=== PATIENT | male | born 1940 | race Caucasian/White ===

== ENCOUNTER → 2018-11-21 13:01 | Outpatient (CLI) | payer MEDICARE, SELFPAY ==
--- NOTE | 2018-11-21 | DI.RAD.S_ITS ---
PROCEDURE: XR FOOT LT MIN 3V INDICATIONS: LEFT FOOT PAIN TECHNIQUE: 3 views of the foot were acquired. COMPARISON: None. FINDINGS: Bones: No fractures or dislocations. No suspicious bony lesions. Plantar calcaneal spurring. Diffuse midfoot degenerative spurring. There is diffuse osteopenia throughout the forefoot which decreases study sensitivity. Scattered interphalangeal osteoarthritis Soft tissues: No tibiotalar joint effusion. Achilles tendon appears normal. Vascular calcifications are noted IMPRESSION: Mild left foot joint degeneration. Plantar calcaneal spur. Dictated by: Jesús Chase M.D. on 11/21/2018 at 13:11 Approved by: Jesús Chase M.D. on 11/21/2018 at 13:16
== END ==
PROVIDERS: PCP Family Medicine; Visit Provider Family Medicine
DX: M79.672 Pain in left foot (principal); M19.072 Primary osteoarthritis, left ankle and foot; M77.32 Calcaneal spur, left foot
CPT/HCPCS: 73630

== ENCOUNTER 2018-12-04 13:46 | Emergency (ER) | payer MEDICARE, SELFPAY ==
[2018-12-04 13:50] VITALS: BP 169/87; PULSE 114; RESP 26; TEMP 36.6; O2SAT 95; BMI 33.8
--- NOTE | 2018-12-04 13:52 | ED_ITS ---
HPI - General Adult General Chief complaint: Dizziness Stated complaint: light headed,feels like he has sea legs Time Seen by Provider: 12/04/18 13:51 Source: patient Mode of arrival: ambulatory Limitations: no limitations History of Present Illness HPI narrative: Patient is a 78-year-old male here for evaluation of lightheadedness. He states that this morning he brought his into the wound care clinic. He was out in his car closing the door when he stated he suddenly became very lightheaded. He was a non vertigo sensation. He stated that he felt like he needs to sit down. He reported no other symptoms at the time. He states that he has had lightheadedness like this occasionally in the past. Has not tried anything for his symptoms prior to arrival Related Data Home Medications Medication Instructions Recorded Confirmed Atorvastatin Calcium (Lipitor) #0 06/15/10 NADOLOL (Corgard) #0 06/15/10 aspirin [Aspirin Low Dose] 1 tab PO DAILY #0 06/15/10 12/04/18 bupropion HCl 150 mg PO DAILY 12/04/18 12/04/18 cephalexin 500 mg PO QID 12/04/18 12/04/18 furosemide 40 mg PO BID 12/04/18 12/04/18 losartan 100 mg PO DAILY 12/04/18 12/04/18 oxycodone 5 mg PO Q4-6H PRN 12/04/18 12/04/18 triamterene-hydrochlorothiazid 1 cap PO DAILY 12/04/18 12/04/18 Allergies Allergy/AdvReac Type Severity Reaction Status Date / Time No Known Drug Allergies Allergy Verified 12/04/18 13:55 Review of Systems Constitutional Reports fatigue, Denies fever(s), Denies headache(s) and Reports weakness Eyes Denies blurry vision, Denies change in vision and Denies diplopia ENT Ears, Nose, Mouth, and Throat: Denies vertigo, Reports dizziness, Denies headache(s), Denies nasal congestion, Denies nasal discharge, Reports disequilibrium and Reports sore throat Cardiovascular Denies chest pain, Denies syncope, Denies rapid heart rate, Denies pedal edema, Denies edema, Denies irregular heart rhythm, Denies palpitations and Denies dyspnea Respiratory Denies cough and Denies dyspnea Gastrointestinal Gastrointestinal: Denies abdominal pain, Denies nausea and Denies vomiting Genitourinary Denies dysuria Musculoskeletal Denies myalgias and Denies arthralgias Integumentary/Breasts Denies rash Neurologic Denies behavioral changes, Denies confusion, Denies vertigo, Reports dizziness, Denies syncope, Denies headache(s), Denies focal weakness, Denies paresthesias, Denies tremor(s), Reports disequilibrium and Reports weakness Psychiatric Denies behavioral changes and Denies confusion Endocrine Reports fatigue and Denies palpitations Hematologic/Lymphatic Comments: Not on anticoagulation Allergic/Immunologic Denies urticaria PFSH Medical History Hypertension (Acute) Surgical History No pertinent past surgical history (Acute) Social History Smoking Status: Former smoker Social History Smoking Status: Former smoker Exam Initial Vital Signs Initial Vital Signs: Vital Signs Temperature 97.8 F 12/04/18 13:50 Pulse Rate 114 H 12/04/18 13:50 Respiratory Rate 26 H 12/04/18 13:50 Blood Pressure 169/87 H 12/04/18 13:50 Pulse Oximetry 95 12/04/18 13:50 Const General: cooperative, well developed, well groomed and No acute distress Orientation: alert, awake and oriented x3 HENMT Head: normal to inspection and normocephalic Eyes Pupils: PERRL EOM: EOM intact bilaterally Resp Effort & Inspection: normal respiratory effort Auscultation: clear to auscultation bilaterally Cardio Rate: tachycardic Rhythm: regular rhythm Pulses: radial pulses present GI Inspection: non-distended Palpation: soft, No firm and No tender Skin Lesions: no lesions Rashes: no rashes Neuro General: alert, awake and oriented x3 Cognition: normal cognition Speech: speech normal Motor: muscle tone normal throughout Sensory Exam: no sensory deficits noted Extrem General: normal to inspection and capillary refill normal Psych Appearance: grossly normal and well kempt Course Orders Ordered: ED Orders 12/04/18 13:53 EKG-12 Lead Stat 12/04/18 14:13 CT head/brain wo con Stat 12/04/18 14:15 Basic Metabolic Panel Stat Complete Blood Count AUTO DIFF Stat Partial Thromboplastin Time Stat Prothrombin Time INR Stat Troponin I Stat Discontinued Medications Sodium Chloride (Normal Saline 0.9%) 1,000 mls @ 1,000 mls/hr IV BOLUS ONE Stop: 12/04/18 15:10 Last Infusion: 12/04/18 15:21 Dose: 0 mls/hr Admin: 12/04/18 14:24 Dose: 1,000 mls/hr Vital Signs - 8 hr 12/04/18 13:50 12/04/18 14:30 12/04/18 15:01 Temperature 97.8 F Pulse Rate 114 H 112 H 96 H Respiratory Rate 26 H 18 18 Blood Pressure 169/87 H Blood Pressure [Left Arm] 173/70 H 134/58 L Pulse Oximetry 95 96 96 12/04/18 16:00 Temperature Pulse Rate 96 H Respiratory Rate 16 Blood Pressure Blood Pressure [Left Arm] 160/67 H Pulse Oximetry 97 Medical Decision Making Lab Data Lab results reviewed: Yes I reviewed the patient's lab results. Result diagrams: 12/04/18 14:15 12/04/18 14:15 Lab Results 12/04/18 12/04/18 12/04/18 Range/Units 14:15 14:15 14:15 WBC 6.7 (4.5-11.0) X10^3/uL RBC 4.86 (4.5-5.9) X10^6/uL Hgb 15.4 (13.5-17.5) g/dL Hct 44.6 (41-53) % MCV 91.9 (80-100) fL MCH 31.7 (26-34) PG MCHC 34.5 (30-36) % RDW 14.3 (11.6-14.8) % Plt Count 216 (150-400) X10^3/uL Neut % (Auto) 71.7 (50-75) % Lymph % (Auto) 16.7 L (25-40) % [place] % (Auto) 9.4 (3-14) % Eos % (Auto) 1.0 L (2-4) % Baso % (Auto) 1.2 (0-2) % Neut # (Auto) 4800 (7625-0517) /uL Lymph # (Auto) 1100 (5107-3270) /uL [place] # (Auto) 600 (0-900) /uL Eos # (Auto) 100 (0-450) /uL Baso # (Auto) 100 (0-100) /uL PT 12.2 (10.1-12.7) SECONDS INR 1.1 (0.9-1.3) APTT 32 (26.4-36.2) SECONDS Sodium 136 L (137-145) mmol/L Potassium 3.1 L (3.4-5.1) mmol/L Chloride 96 L (98-107) mmol/L Carbon Dioxide 27 (22-32) mmol/L BUN 17 (9-20) mg/dL Creatinine 1.10 (0.66-1.25) mg/dL Estimated GFR > 60.0 (>60) mL/min BUN/Creatinine Ratio 15.5 (6-22) Glucose 210 H (80-110) mg/dL Calcium 9.7 (8.4-10.2) mg/dL Troponin I < 0.012 (0.01-0.034) ng/mL Imaging Data CT scan - head: Radiologist's impression: [address] [address] [address] Scan Report Signed Patient: Steven ChowdhuryMR#: [id number] : 1Acct:[id number] Age/Sex: 78 / MDate of Service: 12/04/18 Loc: ED Accession Number: [id number] Procedure: CT head/brain wo con Ordering Provider: Flavio Hartmann D.O. PROCEDURE: CT HEAD/BRAIN WO CON INDICATIONS: Lightheadedness TECHNIQUE: Noncontrast 4.5 mm thick angled axial sections acquired from the foramen magnum to the vertex, with coronal and sagittal reformats. For radiation dose reduction, the following was used: automated exposure control, adjustment of mA and/or kV according to patient size. COMPARISON: None. FINDINGS: Image quality: Diagnostic. CSF spaces: Basal cisterns are patent. No extra-axial fluid collections. Ventricles are moderately prominent. Brain: No midline shift. No intracranial masses or hemorrhage. Muse-white matter interface is normal. Area of low attenuation involving the right cerebellum suggestive of an old infarction. There also are heterogeneous areas of decreased density involving the brainstem. Scattered areas of low attenuation are identified within the deep white matter and periventricular white matter of the supratentorial brain. There is diffuse parenchymal volume loss. Calcification along the midline falx is identified, which could potentially represent a calcified meningioma. This structure is not exerting mass effect on adjacent parenchymal structures and is noted to measure approximately 1.5 x 0.6 cm (image 23, series 2). Skull and face: Calvarium and visualized facial bones are intact, without suspicious lesions. Sinuses: Visualized sinuses and mastoids are clear. IMPRESSION: 1. No acute intracranial hemorrhage. 2. Moderate parenchymal volume loss and chronic small vessel ischemic changes. 3. 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 If there is clinical concern for acute ischemia, MRI would be helpful for better evaluation. Dictated by: Dayton Mari M.D. on 12/04/2018 at 13:32 ECG Data Attestation: I personally reviewed and interpreted this ECG as follows: Prior ECG tracings: not available for review Interpretation: Sinus tachycardia ventricular rate of [address] T wave changes MDM Narrative Medical decision making narrative: Patient states he feels much better after fluids. He ambulated around the emergency department his cane without problems. He sat up without problems. Electrolytes head CT all unremarkable. Low suspicion for CVA. Patient did become rather emotional talking about a recent health issue that his had. His also states that he quit drinking a couple days ago. He has no signs of withdrawal currently. Will hold on further workup for now. Patient was instructed to take his medications as directed. It also appears that he has been inconsistent with taking his medication. Will h ave him follow up with his primary care doctor tomorrow. He was given return precautions. Both he and his expressed understanding and agreement with plan. Discharge Plan Departure Patient Disposition: Home Clinical Impression: Lightheaded Instructions: DI for Dizziness-Nonvertigo Activity Restrictions/Additional Instructions: Make sure that you continue all of your medications as directed. I do recommend that you increase her fluid intake. Tomorrow contact your primary care doctor for follow-up. Return to the emergency department for any new or worsening symptoms Prescriptions: No Action Atorvastatin Calcium (Lipitor) Qty: 0 RF: 0 aspirin [Aspirin Low Dose] 81 mg Tablet,Delayed Release (Dr/Ec) 1 tab PO DAILY Qty: 0 RF: 0 NADOLOL (Corgard) Qty: 0 RF: 0 furosemide 40 mg tablet 40 mg PO BID RF: 0 triamterene-hydrochlorothiazid 37.5-25 mg capsule 1 cap PO DAILY RF: 0 cephalexin 500 mg capsule 500 mg PO QID RF: 0 losartan 100 mg tablet 100 mg PO DAILY RF: 0 oxycodone 5 mg tablet 5 mg PO Q4-6H PRN (Reason: pain) RF: 0 bupropion HCl 150 mg tablet extended release 24 hr 150 mg PO DAILY RF: 0 Referrals: Brien Sharpe MD [Primary Care Provider] -
--- NOTE | 2018-12-04 14:13 | DI.CT.S_ITS ---
PROCEDURE: CT HEAD/BRAIN WO CON INDICATIONS: Lightheadedness TECHNIQUE: Noncontrast 4.5 mm thick angled axial sections acquired from the foramen magnum to the vertex, with coronal and sagittal reformats. For radiation dose reduction, the following was used: automated exposure control, adjustment of mA and/or kV according to patient size. COMPARISON: None. FINDINGS: Image quality: Diagnostic. CSF spaces: Basal cisterns are patent. No extra-axial fluid collections. Ventricles are moderately prominent. Brain: No midline shift. No intracranial masses or hemorrhage. Muse-white matter interface is normal. Area of low attenuation involving the right cerebellum suggestive of an old infarction. There also are heterogeneous areas of decreased density involving the brainstem. Scattered areas of low attenuation are identified within the deep white matter and periventricular white matter of the supratentorial brain. There is diffuse parenchymal volume loss. Calcification along the midline falx is identified, which could potentially represent a calcified meningioma. This structure is not exerting mass effect on adjacent parenchymal structures and is noted to measure approximately 1.5 x 0.6 cm (image 23, series 2). Skull and face: Calvarium and visualized facial bones are intact, without suspicious lesions. Sinuses: Visualized sinuses and mastoids are clear. IMPRESSION: 1. No acute intracranial hemorrhage. 2. Moderate parenchymal volume loss and chronic small vessel ischemic changes. 3. 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 If there is clinical concern for acute ischemia, MRI would be helpful for better evaluation. Dictated by: Dayton Mari M.D. on 12/04/2018 at 13:32 Approved by: Dayton Mari M.D. on 12/04/2018 at 13:35
[2018-12-04] MEDS: SODIUM CHLORIDE 0.9% 1,000 ML 1000 ML IV (14:24)
[2018-12-04 14:26] LABS: Add Manual Diff / Slide Review NO; Basophils Absolute Auto 100 /uL (0-100); Basophils Percent Auto 1.2 % (0-2); Eosinophils Absolute Auto 100 /uL (0-450); Hematocrit 44.6 % (41-53); Hemoglobin 15.4 g/dL (13.5-17.5); Lymphocytes Absolute Auto 1100 /uL (1100-4500); Lymphocytes Percent Auto 16.7 % (25-40); Mean Corpuscular HGB Conc 34.5 % (30-36); Mean Corpuscular Hemoglobin 31.7 PG (26-34); Mean Corpuscular Volume 91.9 fL (80-100); Monocytes Absolute Auto 600 /uL (0-900); Monocytes Percent Auto 9.4 % (3-14); Neutrophils Absolute Auto 4800 /uL (1500-7000); Neutrophils Percent Auto 71.7 % (50-75); Platelet Count 216 X10^3/uL (150-400); Red Blood Cell Count 4.86 X10^6/uL (4.5-5.9); Red Cell Distribution Width 14.3 % (11.6-14.8); White Blood Cell Count 6.7 X10^3/uL (4.5-11.0)
[2018-12-04 14:30] VITALS: BP 173/70; PULSE 112; RESP 18; O2SAT 96
[2018-12-04 14:31] LABS: INR 1.1 (0.9-1.3); Prothrombin Time 12.2 SECONDS (10.1-12.7)
[2018-12-04 14:34] LABS: PTT Partial Thromboplastin Tim 32 SECONDS (26.4-36.2)
[2018-12-04 14:36] LABS: BUN Creatinine Ratio 15.5 (6-22); Blood Urea Nitrogen 17 mg/dL (9-20); Calcium 9.7 mg/dL (8.4-10.2); Carbon Dioxide 27 mmol/L (22-32); Chloride 96 mmol/L (98-107); Estimated Glomerular Filt Rate > 60.0 mL/min (>60); Glucose 210 mg/dL (80-110); HEMOLYSIS < 15 (0-50); Potassium 3.1 mmol/L (3.4-5.1); Sodium 136 mmol/L (137-145)
[2018-12-04 15:01] VITALS: BP 134/58; PULSE 96; RESP 18; O2SAT 96
[2018-12-04 15:05] LABS: Troponin I < 0.012 ng/mL (0.01-0.034)
--- NOTE | 2018-12-04 15:56 | PC.NURSE ---
Pt states he feels much better. Like night and day.
[2018-12-04 16:00] VITALS: BP 160/67; PULSE 96; RESP 16; O2SAT 97
--- NOTE | 2018-12-04 16:04 | PC.NURSE ---
arrives to ED and nurse from wound care explains that she (the ) told her nurse that the patient he quit drinking 4 days ago.
[2018-12-04 16:51] VITALS: BP 160/67; PULSE 96; RESP 16; O2SAT 99
== END 2018-12-04 16:52 | disposition home or self-care (01) ==
PROVIDERS: Emergency Provider Emergency Medicine; PCP Family Medicine
DX: R42 Dizziness and giddiness (principal)
CPT/HCPCS: 36591; 70450; 80048; 84484; 85025; 85610; 85730; 93005; 96360; 99283; 99285

== ENCOUNTER → 2018-12-18 13:42 | Outpatient (CLI) | payer MEDICARE, SELFPAY ==
--- NOTE | 2018-12-18 | DI.MRI.S_ITS ---
PROCEDURE: MR HEAD/BRAIN WO CON INDICATIONS: Dizziness and weakness TECHNIQUE: Non-contrast axial T1 spin echo, axial T2 fast spin echo, sagittal and axial FLAIR, coronal T2 fast spin echo, axial gradient echo, axial diffusion and ADC through the brain. COMPARISON: [facility], CT, CT HEAD/BRAIN WO CON, 12/04/2018, 14:11. FINDINGS: Image quality: Excellent. CSF spaces: Ventricles appear symmetric in size and shape. Basal cisterns are patent. No extra-axial fluid collections. Brain: No intracranial bleeds or mass effects. There is cerebral volume loss for age. There are periventricular and deep white matter chronic small vessel ischemic changes. The region of the medial subareolar hemispheres, there is hyperintense appearance on diffusion weighted imaging in the medial right cerebellum however this is probably T2 shine through artifact given the appearance on the ADC map. There is also medial left cerebellar signal change also probably chronic. These correspond to the hypoattenuating appearance on the comparison CT from 12/04/18. No convincing acute ischemia identified. 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 Brainstem appears normal. Normal intravascular flow voids are present. Skull and face: Calvarial bone marrow is normal in signal. Orbits are normal. Sinuses: Sinuses and mastoids are clear. IMPRESSION: No evidence of acute ischemia. Medial cerebellar lobe signal abnormalities presumably subacute or chronic infarct/encephalomalacia as discussed above. Diffuse small white matter signal changes, probably represent chronic microvascular ischemic disease, versus statistically less likely demyelination or other infectious, inflammatory, neurodegenerative etiology, technically nonspecific. Dictated by: Jesús Chase M.D. on 12/18/2018 at 15:42 Approved by: Jesús Chase M.D. on 12/18/2018 at 15:49
== END ==
PROVIDERS: PCP Family Medicine; Visit Provider Family Medicine
DX: R42 Dizziness and giddiness (principal)
CPT/HCPCS: 70551

== ENCOUNTER 2019-01-07 16:19 | Emergency (ER) | payer MEDICARE, SELFPAY ==
[2019-01-07 16:31] VITALS: BP 150/80; PULSE 100; RESP 18; TEMP 36.7; O2SAT 99; BMI 315.6
--- NOTE | 2019-01-07 20:33 | ED.SKABFB ---
HPI - Skin/Abscess/Foreign Bdy <KARYNA Carlson - Last Filed: 01/07/19 22:39> General Chief complaint: Skin/Abscess/Foreign Body Stated complaint: infection on left aguilar bone Time Seen by Provider: 01/07/19 20:33 Source: patient Mode of arrival: ambulatory Limitations: no limitations History of Present Illness HPI narrative: 78-year-old male that is a former smoker with history of hypertension here for complaint of redness and discomfort to his left lower extremity for the last week. He denies any trauma to the area. He is concerned for infection. He denies any significant swelling to the lower extremity. He is ambulatory in the emergency room with a cane. No known fevers. Positive p.o. intake. No nausea or vomiting. No chest pain no shortness of breath. No other concerns or complaints at this timeframe. Related Data Home Medications Medication Instructions Recorded Confirmed Atorvastatin Calcium (Lipitor) #0 06/15/10 NADOLOL (Corgard) #0 06/15/10 aspirin [Aspirin Low Dose] 1 tab PO DAILY #0 06/15/10 12/04/18 bupropion HCl 150 mg PO DAILY 12/04/18 12/04/18 cephalexin 500 mg PO QID 12/04/18 12/04/18 furosemide 40 mg PO BID 12/04/18 12/04/18 losartan 100 mg PO DAILY 12/04/18 12/04/18 oxycodone 5 mg PO Q4-6H PRN 12/04/18 12/04/18 triamterene-hydrochlorothiazid 1 cap PO DAILY 12/04/18 12/04/18 Previous Rx's Medication Instructions Recorded clindamycin HCl 300 mg PO QID #28 cap 01/07/19 Allergies Allergy/AdvReac Type Severity Reaction Status Date / Time No Known Drug Allergies Allergy Verified 01/07/19 16:37 Review of Systems <KARYNA Carlson - Last Filed: 01/07/19 22:39> Constitutional Denies chills, Denies fever(s), Denies lethargy and Denies weakness Eyes Denies change in vision, Denies eye discharge, Denies irritation and Denies loss of vision ENT Ears, Nose, Mouth, and Throat: Denies change in voice, Denies neck pain and Denies sore throat Cardiovascular Denies chest pain, Denies irregular heart rhythm, Denies lightheadedness, Denies palpitations, Denies dyspnea, Denies dyspnea on exertion and Denies orthopnea Respiratory Denies cough, Denies dyspnea, Denies dyspnea on exertion and Denies wheezing Gastrointestinal Gastrointestinal: Denies abdominal pain, Denies change in bowel habits, Denies diarrhea, Denies nausea and Denies vomiting Genitourinary Denies hematuria, Denies flank pain, Denies urinary incontinence and Denies urinary urgency Musculoskeletal Denies neck pain Comments: Redness and discomfort to left lower extremity Integumentary/Breasts Denies pruritus, Denies erythema, Denies rash and Denies wounds Neurologic Denies loss of vision and Denies weakness Endocrine Denies palpitations Allergic/Immunologic Denies wheezing PFSH <KARYNA Carlson - Last Filed: 01/07/19 22:39> Medical History Hypertension (Acute) Surgical History No pertinent past surgical history (Acute) Social History Smoking Status: Former smoker Social History Smoking Status: Former smoker Exam <KARYNA Carlson - Last Filed: 01/07/19 22:39> Initial Vital Signs Initial Vital Signs: Vital Signs Temperature 98.1 F 01/07/19 16:31 Pulse Rate 100 H 01/07/19 16:31 Respiratory Rate 18 01/07/19 16:31 Blood Pressure 150/80 H 01/07/19 16:31 Pulse Oximetry 99 01/07/19 16:31 Const General: cooperative and well developed Nutritional Appearance: well nourished Orientation: alert, awake, oriented x3 and not confused [facility] Mouth: oral mucosae normal and moist mucous membranes Eyes General: appearance normal, both eyes and all related structures Conjunctivae: conjunctivae normal Sclera: sclerae normal Pupils: PERRL EOM: EOM intact bilaterally Cardio Rate: regular rate Rhythm: regular rhythm Heart Sounds: no click, no gallops, no murmurs and no rubs Pulses: normal peripheral pulses Neuro General: alert, oriented x3, gait normal and no focal motor deficits Speech: speech normal Extrem Other: Erythema and warmth to the left lower extremity to both the calf and also aguilar area. Distal sensation is intact. Distal range of motions intact. Distal pulses are intact. <Jean-Claude Christie DO - Last Filed: 01/08/19 06:56> Initial Vital Signs Initial Vital Signs: Vital Signs Temperature 98.1 F 01/07/19 16:31 Pulse Rate 100 H 01/07/19 16:31 Respiratory Rate 18 01/07/19 16:31 Blood Pressure 150/80 H 01/07/19 16:31 Pulse Oximetry 99 01/07/19 16:31 Course <KARYNA Carlson - Last Filed: 01/07/19 22:39> Vital Signs - 8 hr 01/07/19 16:31 01/07/19 21:07 Temperature 98.1 F Pulse Rate 100 H 82 Respiratory Rate 18 15 Blood Pressure 150/80 H 158/89 H Pulse Oximetry 99 99 <Jean-Claude Christie DO - Last Filed: 01/08/19 06:56> Vital Signs - 8 hr 01/07/19 16:31 01/07/19 21:07 Temperature 98.1 F Pulse Rate 100 H 82 Respiratory Rate 18 15 Blood Pressure 150/80 H 158/89 H Pulse Oximetry 99 99 MDM - Skin/Abscess/Foreign Bdy <KARYNA Carlson - Last Filed: 01/07/19 22:39> MDM Narrative Medical decision making narrative: Sinus symptoms presents as cellulitis to left lower extremity. He is placed on clindamycin. Use [id number] Tylenol or Motrin as needed for any discomfort. Follow up with primary care for the next few days for re-evaluation. Proximal margins of the erythema were marked with a skin marker. For any worsening symptoms return to the emergency room. Discharge Plan Departure Patient Disposition: Home Clinical Impression: Cellulitis of left lower leg Discharge Date/Time: 01/07/19 21:07 Interventions: ED Discharge Assessment Last Done: 01/07/19 21:07 Instructions: DI for Cellulitis -- Adult Activity Restrictions/Additional Instructions: Signs and symptoms presents as cellulitis to the left lower extremity. Your placed on an antibiotic called clindamycin use as directed. Follow up with her primary care provider in the next couple of days for re-evaluation to ensure symptoms are improving. For any worsening symptoms return emergency room. Use [id number] Tylenol as needed for any discomfort. Prescriptions: New clindamycin HCl 300 mg capsule 300 mg PO QID Qty: 28 RF: 0 No Action Atorvastatin Calcium (Lipitor) Qty: 0 RF: 0 aspirin [Aspirin Low Dose] 81 mg Tablet,Delayed Release (Dr/Ec) 1 tab PO DAILY Qty: 0 RF: 0 NADOLOL (Corgard) Qty: 0 RF: 0 furosemide 40 mg tablet 40 mg PO BID RF: 0 triamterene-hydrochlorothiazid 37.5-25 mg capsule 1 cap PO DAILY RF: 0 cephalexin 500 mg capsule 500 mg PO QID RF: 0 losartan 100 mg tablet 100 mg PO DAILY RF: 0 oxycodone 5 mg tablet 5 mg PO Q4-6H PRN (Reason: pain) RF: 0 bupropion HCl 150 mg tablet extended release 24 hr 150 mg PO DAILY RF: 0 Referrals: Brien Sharpe MD [Primary Care Provider] - <Jean-Claude Christie DO - Last Filed: 01/08/19 06:56> Cosign ED Attending Sanjuanaature Attestation: I was immediately available in the department for consultation. Documentation has been reviewed. I agree with assessment and plan.
[2019-01-07 21:07] VITALS: BP 158/89; PULSE 82; RESP 15; O2SAT 99
== END 2019-01-07 21:07 | disposition home or self-care (01) ==
PROVIDERS: Emergency Provider Nurse Practitioner Family; PCP Family Medicine
DX: L03.116 Cellulitis of left lower limb (principal)
CPT/HCPCS: 99282; 99283

== ENCOUNTER 2019-05-20 17:07 | Emergency (ER) | payer MEDICARE, SELFPAY ==
[2019-05-20] VITALS (9 sets, daily range): BP systolic 101–141; BP diastolic 46–87; PULSE 112–179; RESP 18–20; TEMP 36.9; O2SAT 92–99; BMI 33.8
--- NOTE | 2019-05-20 17:32 | PC.NURSE ---
Doppler used on L foot and no pulses were detected.
--- NOTE | 2019-05-20 17:42 | DI.US.S_ITS ---
PROCEDURE: US ARTERIAL DUPLEX LE LT INDICATIONS: FOOT, TOE DISCOLORATION WORSENING TECHNIQUE: Color and pulse Doppler interrogation was performed of the left lower extremity arterial system, with image documentation. COMPARISON: [facility], US, US TESTICULAR SCROTUM, 05/08/2019, 14:46. [facility], , US TESTICULAR SCROTUM + DOPPLER, 05/05/2019, 14:24. [facility], , US ARTERIAL LOWER EXTREMITY DOPPLER BILATERAL, 05/02/2019, 9:04. [facility], US ARTERIAL LOWER EXTREMITY DOPPLER LEFT, 05/01/2019, 18:38. FINDINGS: Common femoral artery: No flow detected. Deep femoral artery: The deep femoral artery cannot be identified on this exam. Proximal superficial femoral artery: 31 cm/s. Mid superficial femoral artery: 18 cm/s. Distal superficial femoral artery: No flow identified. Popliteal artery: No flow identified. Posterior tibial artery: No flow identified. Anterior tibial artery/dorsalis pedis: No flow identified. Muse-scale imaging description: Calcified plaque noted. IMPRESSION: 1. The left deep femoral artery cannot be identified on this exam. 2. No convincing vascular flow could be identified within the left common femoral artery, distal superficial femoral artery, popliteal artery, posterior tibial artery, and anterior tibial artery, concerning for potential occlusion. Minimal flow is identified within the proximal superficial femoral artery and mid superficial femoral artery, possibly representing reconstitution by collateral vessels or trace residual flow. Clinical correlation recommended. Consider followup if there is continued clinical concern. Dictated by: Jeffrey Farr M.D. on 05/20/2019 at 20:07 Approved by: Jeffrey Farr M.D. on 05/20/2019 at 20:12
--- NOTE | 2019-05-20 17:42 | DI.US.S_ITS ---
PROCEDURE: US PERIPH VENOUS LOW EXTREM LT INDICATIONS: FOOT, TOE DISCOLORATION WORSENING TECHNIQUE: Real-time imaging, as well as color and pulse Doppler interrogation, were performed of the lower extremity deep veins from the inguinal ligament to the popliteal fossa. COMPARISON: [facility], US, US TESTICULAR SCROTUM, 05/08/2019, 14:46. [facility], US, US TESTICULAR SCROTUM + DOPPLER, 05/05/2019, 14:24. [facility], US, US ARTERIAL LOWER EXTREMITY DOPPLER BILATERAL, 05/02/2019, 9:04. [facility], US, US ARTERIAL LOWER EXTREMITY DOPPLER LEFT, 05/01/2019, 18:38. FINDINGS: The common femoral, superficial femoral and popliteal veins are normally compressible, and free of intraluminal thrombus. Color and pulse Doppler demonstrate normal intraluminal flow. There is normal augmentation response to distal compression maneuver. IMPRESSION: No ultrasound evidence of deep venous thrombosis of the left lower extremity common femoral, superficial femoral, or popliteal veins. Dictated by: Jeffrey Farr M.D. on 05/20/2019 at 19:15 Approved by: Jeffrey Farr M.D. on 05/20/2019 at 19:17
--- NOTE | 2019-05-20 18:06 | ED.EXTPRO ---
HPI - Extremity Problem General Chief complaint: Extremity Problem,Nontraumatic Stated complaint: Foot Wound Time Seen by Provider: 05/20/19 17:34 Source: patient and family Mode of arrival: wheelchair Limitations: no limitations History of Present Illness HPI Narrative: 79-year-old male former smoker with history of hypertension, hyperlipidemia and peripheral vascular disease presents with family chief complaint of a painful left foot and ankle which started turning black over night. He has known peripheral vascular disease and had stenting in his left leg at [facility] on May 01. He denies any chest pain or shortness of breath. He is not dizzy nor weak or lightheaded. Denies any fever or chills. MD Complaint: extremity pain Onset (ago): hour(s) Pain Consistency: constant Location: left Quality: aching Relieving factors: nothing Exacerbating factors: nothing Related Data Home Medications Medication Instructions Recorded Confirmed Atorvastatin Calcium (Lipitor) #0 06/15/10 NADOLOL (Corgard) #0 06/15/10 aspirin [Aspirin Low Dose] 1 tab PO DAILY #0 06/15/10 12/04/18 bupropion HCl 150 mg PO DAILY 12/04/18 12/04/18 cephalexin 500 mg PO QID 12/04/18 12/04/18 furosemide 40 mg PO BID 12/04/18 12/04/18 losartan 100 mg PO DAILY 12/04/18 12/04/18 oxycodone 5 mg PO Q4-6H PRN 12/04/18 12/04/18 triamterene-hydrochlorothiazid 1 cap PO DAILY 12/04/18 12/04/18 Previous Rx's Medication Instructions Recorded clindamycin HCl 300 mg PO QID #28 cap 01/07/19 Allergies Allergy/AdvReac Type Severity Reaction Status Date / Time No Known Drug Allergies Allergy Verified 01/07/19 16:37 Review of Systems Constitutional Denies chills, Denies fever(s), Denies lethargy and Denies weakness Eyes Denies change in vision, Denies eye discharge, Denies irritation and Denies loss of vision ENT Ears, Nose, Mouth, and Throat: Denies change in voice, Denies neck pain and Denies sore throat Cardiovascular Denies chest pain, Denies irregular heart rhythm, Denies lightheadedness, Denies palpitations, Denies dyspnea, Denies dyspnea on exertion and Denies orthopnea Respiratory Denies cough, Denies dyspnea, Denies dyspnea on exertion and Denies wheezing Gastrointestinal Gastrointestinal: Denies abdominal pain, Denies change in bowel habits, Denies diarrhea, Denies nausea and Denies vomiting Genitourinary Denies hematuria, Denies flank pain, Denies urinary incontinence and Denies urinary urgency Musculoskeletal Denies neck pain Integumentary/Breasts Denies pruritus, Reports erythema, Denies rash, Reports skin pain, Reports sores and Denies wounds Neurologic Denies confusion, Denies loss of vision and Denies weakness Psychiatric Denies anxiety, Denies confusion, Denies depression, Denies homicidal ideation and Denies suicidal ideation Endocrine Denies palpitations Hematologic/Lymphatic Denies easy bruising Allergic/Immunologic Denies wheezing [facility] Medical History Hypertension (Acute) Surgical History No pertinent past surgical history (Acute) Social History Smoking Status: Former smoker Social History Smoking Status: Former smoker Exam Narrative Exam Narrative: GENERAL: 79M, chronically ill, appears uncomfortable, alert HEAD: Atraumatic. Normocephalic. No temporal or scalp tenderness. EYES: Pupils equal round and reactive. Extraocular motions intact. No scleral icterus. No injection or drainage. ENT: Nose without bleeding, purulent drainage or septal hematoma. Throat without erythema, tonsillar hypertrophy or exudate. Uvula midline. Airway patent. NECK: Trachea midline. No JVD or lymphadenopathy. Supple, nontender, no meningeal signs. CARDIOVASCULAR: Regular rate and rhythm without murmurs, gallops, or rubs. RESPIRATORY: Clear to auscultation. Breath sounds equal bilaterally. No wheezes, rales, or rhonchi. GASTROINTESTINAL: Abdomen soft, non-tender, nondistended. No hepato-splenomegaly, or palpable masses. No guarding. EXTREMITIES: Left lower extremity is warm to the touch with decrease in sensation, which is apparently not new for him. Left great toe has become black and insensate. No open sores or subcutaneous emphysema BACK: Nontender without deformity or crepitance. No flank tenderness. NEURO: AOx3. SKIN: No rash or erythema. Initial Vital Signs Initial Vital Signs: Vital Signs Temperature 98.5 F 05/20/19 17:10 Pulse Rate 112 H 05/20/19 17:10 Respiratory Rate 18 05/20/19 17:10 Blood Pressure 121/72 05/20/19 17:10 Pulse Oximetry 97 05/20/19 17:10 Course Course Narrative: Records obtained from [facility] and note angioplasty and fem-pop stent. Patient had a 10 cm chronic above the knee right popliteal artery stenosis recanalized with a stent placed. Severe multifocal stenotic disease in previously stented right SFA was angioplastied to 6 mm. Extensive right common femoral arteries the disease present. Single-vessel right lower extremity anterior tibial artery runoff to above the ankle with collaterals below the ankle. Moderate diffuse left external iliac artery stenoses, high-grade left common femoral artery stenosis. 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 There is suggestion of a chronic lesion of the left anterior tibial and dorsalis pedis artery. There is a patent right superficial femoral artery stent. 2020 all and today he is arterial duplex states there is no ability to identify the left deep femoral artery. There is no convincing vascular flow in the left common femoral, distal superficial artery, popliteal artery and posterior tibial or anterior tibial arteries concerning for occlusion. Orders Ordered: ED Orders 05/20/19 19:00 XR foot LT min 3V Stat Discontinued Medications Digoxin (Lanoxin) 250 mcg IV NOW ONE Stop: 05/20/19 18:55 Last Admin: 05/20/19 19:27 Dose: 250 mcg Diltiazem HCl (Cardizem) 10 mg IV NOW ONE Stop: 05/20/19 18:23 Last Admin: 05/20/19 18:27 Dose: 10 mg Heparin Sodium (Porcine) (Heparin) 7,800 unit 80 unit/kg (7800 unit) IV NOW ONE Stop: 05/20/19 18:55 Last Admin: 05/20/19 19:36 Dose: 7,800 unit Heparin Sodium/Dextrose (Heparin Drip) 25,000 unit in 500 mls @ 35.271 mls/hr IV CONT SALOMÓN; Protocol Last Admin: 05/20/19 19:43 Dose: 18 units/kg/hr, 35.271 mls/hr DILTIAZEM (Diltiazem 125 Mg/125 Ml-D5w) 125 mg in 125 mls @ 5 mls/hr IV TITRATE SALOMÓN; Protocol Last Admin: 05/20/19 19:32 Dose: 5 mg/hr, 5 mls/hr Morphine Sulfate (Morphine) 4 mg IV NOW ONE Stop: 05/20/19 17:44 Last Admin: 05/20/19 18:12 Dose: 4 mg Consultations Consultation #1: call to cardiology at [facility] to discuss care fore acutely occluded vasculature. Dr. Lewis has spoken with Dr. Mera and they have reviewed the chart and are comfortable caring for patient. They are happy with Heparin bolus and drip and recommend admission to hospitalist Hospitalist at [facility] happy to accept Some delay in transfer due to availablity of EMS Vital Signs - 8 hr 05/20/19 20:30 05/20/19 21:20 05/20/19 22:15 Pulse Rate 137 H 119 H 117 H Respiratory Rate 19 Blood Pressure Blood Pressure [Left Arm] 107/48 L 131/87 107/56 L Pulse Oximetry 96 98 92 05/20/19 23:30 05/21/19 00:04 05/21/19 00:13 Pulse Rate 124 H 129 H 110 H Respiratory Rate 15 18 Blood Pressure Blood Pressure [Left Arm] 118/49 L 91/47 L 106/57 L Pulse Oximetry 96 93 97 05/21/19 00:45 05/21/19 01:44 Pulse Rate 123 H 123 H Respiratory Rate 8 L 20 Blood Pressure 144/79 H Blood Pressure [Left Arm] 113/46 L Pulse Oximetry 94 96 MDM - Extremity (Nontraumatic) Lab Data Result diagrams: 05/20/19 18:00 05/20/19 18:00 Lab Results 05/20/19 05/20/19 05/20/19 Range/Units 18:00 18:00 18:00 WBC 10.1 (4.5-11.0) X10^3/uL RBC 4.03 L (4.5-5.9) X10^6/uL Hgb 11.1 L (13.5-17.5) g/dL Hct 33.2 L (41-53) % MCV 82.3 (80-100) fL MCH 27.5 (26-34) PG MCHC 33.4 (30-36) % RDW 17.7 H (11.6-14.8) % Plt Count 636 H (150-400) X10^3/uL Neut % (Auto) 80.5 H (50-75) % Lymph % (Auto) 9.0 L (25-40) % [place] % (Auto) 7.8 (3-14) % Eos % (Auto) 1.6 L (2-4) % Baso % (Auto) 1.1 (0-2) % Neut # (Auto) 8100 H (9623-1954) /uL Lymph # (Auto) 900 L (4098-8589) /uL [place] # (Auto) 800 (0-900) /uL Eos # (Auto) 200 (0-450) /uL Baso # (Auto) 100 (0-100) /uL APTT (26.4-36.2) SECONDS Sodium 131 L (137-145) mmol/L Potassium 4.1 (3.4-5.1) mmol/L Chloride 95 L (98-107) mmol/L Carbon Dioxide 25 (22-32) mmol/L BUN 19 (9-20) mg/dL Creatinine 1.10 (0.66-1.25) mg/dL Estimated GFR > 60.0 (>60) mL/min BUN/Creatinine Ratio 17.3 (6-22) Glucose 177 H (80-110) mg/dL Lactate 1.5 (0.7-2.1) mmol/L Calcium 9.7 (8.4-10.2) mg/dL Total Bilirubin 1.1 (0.2-1.3) mg/dL AST 48 (17-59) IU/L ALT 39 (21-72) IU/L Alkaline Phosphatase 102 (38-126) U/L Total Protein 8.1 (6.3-8.2) g/dL Albumin 3.9 (3.5-5.0) g/dL Globulin 4.2 H (1.7-4.1) g/dL Albumin/Globulin Ratio 0.9 L (1.0-2.8) 05/20/19 Range/Units 18:00 WBC (4.5-11.0) X10^3/uL RBC (4.5-5.9) X10^6/uL Hgb (13.5-17.5) g/dL Hct (41-53) % MCV (80-100) fL MCH (26-34) PG MCHC (30-36) % RDW (11.6-14.8) % Plt Count (150-400) X10^3/uL Neut % (Auto) (50-75) % Lymph % (Auto) (25-40) % [place] % (Auto) (3-14) % Eos % (Auto) (2-4) % Baso % (Auto) (0-2) % Neut # (Auto) (5343-8778) /uL Lymph # (Auto) (6872-7499) /uL [place] # (Auto) (0-900) /uL Eos # (Auto) (0-450) /uL Baso # (Auto) (0-100) /uL APTT 37 H D (26.4-36.2) SECONDS Sodium (137-145) mmol/L Potassium (3.4-5.1) mmol/L Chloride (98-107) mmol/L Carbon Dioxide (22-32) mmol/L BUN (9-20) mg/dL Creatinine (0.66-1.25) mg/dL Estimated GFR (>60) mL/min BUN/Creatinine Ratio (6-22) Glucose (80-110) mg/dL Lactate (0.7-2.1) mmol/L Calcium (8.4-10.2) mg/dL Total Bilirubin (0.2-1.3) mg/dL AST (17-59) IU/L ALT (21-72) IU/L Alkaline Phosphatase (38-126) U/L Total Protein (6.3-8.2) g/dL Albumin (3.5-5.0) g/dL Globulin (1.7-4.1) g/dL Albumin/Globulin Ratio (1.0-2.8) Critical Care Time Critical Care Time: Yes Total Critical Care Time: 30 Attestation: The high probability of a clinically significant, sudden or life threatening deterioration of the [CV] system(s) required my full and direct attention, intervention and personal management. The aggregate critical care time was [30] minutes. This time is in addition to time spent performing reported procedures but includes the following: [x] Data Review and interpretation [x] Patient assessment and monitoring of vital signs [x] Documentation [x] Medication orders and management Discharge Plan Departure Patient Disposition: [facility] Clinical Impression: Arterial occlusion, lower extremity, Atrial fibrillation with RVR Discharge Date/Time: 05/21/19 01:44 Prescriptions: No Action Atorvastatin Calcium (Lipitor) Qty: 0 RF: 0 aspirin [Aspirin Low Dose] 81 mg Tablet,Delayed Release (Dr/Ec) 1 tab PO DAILY Qty: 0 RF: 0 NADOLOL (Corgard) Qty: 0 RF: 0 furosemide 40 mg tablet 40 mg PO BID RF: 0 triamterene-hydrochlorothiazid 37.5-25 mg capsule 1 cap PO DAILY RF: 0 cephalexin 500 mg capsule 500 mg PO QID RF: 0 losartan 100 mg tablet 100 mg PO DAILY RF: 0 oxycodone 5 mg tablet 5 mg PO Q4-6H PRN (Reason: pain) RF: 0 bupropion HCl 150 mg tablet extended release 24 hr 150 mg PO DAILY RF: 0 clindamycin HCl 300 mg capsule 300 mg PO QID Qty: 28 RF: 0 Referrals: Brien Sharpe MD [Primary Care Provider] -
[2019-05-20] MEDS: MORPHINE 4 MG/ML INJ IV (18:12)
[2019-05-20 18:15] LABS: Add Manual Diff / Slide Review NO; Basophils Absolute Auto 100 /uL (0-100); Basophils Percent Auto 1.1 % (0-2); Eosinophils Absolute Auto 200 /uL (0-450); Eosinophils Percent Auto 1.6 % (2-4); Hematocrit 33.2 % (41-53); Hemoglobin 11.1 g/dL (13.5-17.5); Lymphocytes Absolute Auto 900 /uL (1100-4500); Mean Corpuscular HGB Conc 33.4 % (30-36); Mean Corpuscular Hemoglobin 27.5 PG (26-34); Mean Corpuscular Volume 82.3 fL (80-100); Monocytes Absolute Auto 800 /uL (0-900); Monocytes Percent Auto 7.8 % (3-14); Neutrophils Absolute Auto 8100 /uL (1500-7000); Neutrophils Percent Auto 80.5 % (50-75); Platelet Count 636 X10^3/uL (150-400); Red Blood Cell Count 4.03 X10^6/uL (4.5-5.9); Red Cell Distribution Width 17.7 % (11.6-14.8); White Blood Cell Count 10.1 X10^3/uL (4.5-11.0)
[2019-05-20 18:25] LABS: Lactate (Lactic Acid) 1.5 mmol/L (0.7-2.1)
[2019-05-20 18:26] LABS: Alanine Aminotransferase 39 IU/L (21-72); Albumin 3.9 g/dL (3.5-5.0); Albumin Globulin Ratio 0.9 (1.0-2.8); Alkaline Phosphatase 102 U/L (38-126); Aspartate Aminotransferase 48 IU/L (17-59); BUN Creatinine Ratio 17.3 (6-22); Bilirubin Total 1.1 mg/dL (0.2-1.3); Blood Urea Nitrogen 19 mg/dL (9-20); Calcium 9.7 mg/dL (8.4-10.2); Carbon Dioxide 25 mmol/L (22-32); Chloride 95 mmol/L (98-107); Estimated Glomerular Filt Rate > 60.0 mL/min (>60); Globulin 4.2 g/dL (1.7-4.1); Glucose 177 mg/dL (80-110); HEMOLYSIS < 15 (0-50); Potassium 4.1 mmol/L (3.4-5.1); Sodium 131 mmol/L (137-145); Total Protein 8.1 g/dL (6.3-8.2)
[2019-05-20] MEDS: dilTIAZem 5 MG/ML SDV 10 MG IV (18:27)
--- NOTE | 2019-05-20 19:00 | DI.RAD.S_ITS ---
PROCEDURE: XR FOOT LT MIN 3V INDICATIONS: osteo? TECHNIQUE: 3 views of the foot were acquired. COMPARISON: [facility], CR, XR FOOT LT MIN 3V, 11/21/2018, 13:07. FINDINGS: Bones: There is diffuse osteopenia throughout the forefoot which decreases study sensitivity. No fractures or dislocations. No suspicious bony lesions. No convincing cortical erosions are identified. There are mild degenerative changes at the left first metatarsal phalangeal joint and left first interphalangeal joint. There are minimal degenerative changes of the second through fifth interphalangeal joints. There is a small plantar calcaneal spur. Soft tissues: No tibiotalar joint effusion. IMPRESSION: Mild degenerative changes of the left foot. No convincing cortical erosions to suggest osteomyelitis, although please note that cortical erosions are a late stage finding of osteomyelitis. Dictated by: Jeffrey Farr M.D. on 05/20/2019 at 20:47 Approved by: Jeffrey Farr M.D. on 05/20/2019 at 20:50
--- NOTE | 2019-05-20 19:00 | ED_ITS ---
HPI - Extremity Problem General Chief complaint: Extremity Problem,Nontraumatic Stated complaint: Foot Wound Time Seen by Provider: 05/20/19 17:34 Source: patient and family Mode of arrival: wheelchair Limitations: no limitations History of Present Illness HPI Narrative: 79-year-old male former smoker with history of hypertension, hyperlipidemia and peripheral vascular disease presents with family chief complaint of a painful left foot and ankle which started turning black over night. He has known peripheral vascular disease and had stenting in his left leg at [facility] on May 01. He denies any chest pain or shortness of breath. He is not dizzy nor weak or lightheaded. Denies any fever or chills. MD Complaint: extremity pain Onset (ago): hour(s) Pain Consistency: constant Location: left Quality: aching Relieving factors: nothing Exacerbating factors: nothing Related Data Home Medications Medication Instructions Recorded Confirmed Atorvastatin Calcium (Lipitor) #0 06/15/10 NADOLOL (Corgard) #0 06/15/10 aspirin [Aspirin Low Dose] 1 tab PO DAILY #0 06/15/10 12/04/18 bupropion HCl 150 mg PO DAILY 12/04/18 12/04/18 cephalexin 500 mg PO QID 12/04/18 12/04/18 furosemide 40 mg PO BID 12/04/18 12/04/18 losartan 100 mg PO DAILY 12/04/18 12/04/18 oxycodone 5 mg PO Q4-6H PRN 12/04/18 12/04/18 triamterene-hydrochlorothiazid 1 cap PO DAILY 12/04/18 12/04/18 Previous Rx's Medication Instructions Recorded clindamycin HCl 300 mg PO QID #28 cap 01/07/19 Allergies Allergy/AdvReac Type Severity Reaction Status Date / Time No Known Drug Allergies Allergy Verified 01/07/19 16:37 Review of Systems Constitutional Denies chills, Denies fever(s), Denies lethargy and Denies weakness Eyes Denies change in vision, Denies eye discharge, Denies irritation and Denies loss of vision ENT Ears, Nose, Mouth, and Throat: Denies change in voice, Denies neck pain and Denies sore throat Cardiovascular Denies chest pain, Denies irregular heart rhythm, Denies lightheadedness, Denies palpitations, Denies dyspnea, Denies dyspnea on exertion and Denies orthopnea Respiratory Denies cough, Denies dyspnea, Denies dyspnea on exertion and Denies wheezing Gastrointestinal Gastrointestinal: Denies abdominal pain, Denies change in bowel habits, Denies diarrhea, Denies nausea and Denies vomiting Genitourinary Denies hematuria, Denies flank pain, Denies urinary incontinence and Denies urinary urgency Musculoskeletal Denies neck pain Integumentary/Breasts Denies pruritus, Reports erythema, Denies rash, Reports skin pain, Reports sores and Denies wounds Neurologic Denies confusion, Denies loss of vision and Denies weakness Psychiatric Denies anxiety, Denies confusion, Denies depression, Denies homicidal ideation and Denies suicidal ideation Endocrine Denies palpitations Hematologic/Lymphatic Denies easy bruising Allergic/Immunologic Denies wheezing [facility] Medical History Hypertension (Acute) Surgical History No pertinent past surgical history (Acute) Social History Smoking Status: Former smoker Social History Smoking Status: Former smoker Exam Narrative Exam Narrative: GENERAL: 79M, chronically ill, appears uncomfortable, alert HEAD: Atraumatic. Normocephalic. No temporal or scalp tenderness. EYES: Pupils equal round and reactive. Extraocular motions intact. No scleral icterus. No injection or drainage. ENT: Nose without bleeding, purulent drainage or septal hematoma. Throat without erythema, tonsillar hypertrophy or exudate. Uvula midline. Airway patent. NECK: Trachea midline. No JVD or lymphadenopathy. Supple, nontender, no meningeal signs. CARDIOVASCULAR: Regular rate and rhythm without murmurs, gallops, or rubs. RESPIRATORY: Clear to auscultation. Breath sounds equal bilaterally. No wheezes, rales, or rhonchi. GASTROINTESTINAL: Abdomen soft, non-tender, nondistended. No hepato- splenomegaly, or palpable masses. No guarding. EXTREMITIES: Left lower extremity is warm to the touch with decrease in sensation, which is apparently not new for him. Left great toe has become black and insensate. No open sores or subcutaneous emphysema BACK: Nontender without deformity or crepitance. No flank tenderness. NEURO: AOx3. SKIN: No rash or erythema. Initial Vital Signs Initial Vital Signs: Vital Signs Temperature 98.5 F 05/20/19 17:10 Pulse Rate 112 H 05/20/19 17:10 Respiratory Rate 18 05/20/19 17:10 Blood Pressure 121/72 05/20/19 17:10 Pulse Oximetry 97 05/20/19 17:10 Course Course Narrative: Records obtained from [facility] and note angioplasty and fem-pop stent. Patient had a 10 cm chronic above the knee right popliteal artery stenosis recanalized with a stent placed. Severe multifocal stenotic disease in previously stented right SFA was angioplastied to 6 mm. Extensive right common femoral arteries the disease present. Single-vessel right lower extremity anterior tibial artery runoff to above the ankle with collaterals below the ankle. Moderate diffuse left external iliac artery steno ses, high-grade left common femoral artery stenosis. 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 There is suggestion of a chronic lesion of the left anterior tibial and dorsalis pedis artery. There is a patent right superficial femoral artery stent. 2020 all and today he is arterial duplex states there is no ability to identify the left deep femoral artery. There is no convincing vascular flow in the left common femoral, distal superficial artery, popliteal artery and posterior tibial or anterior tibial arteries concerning for occlusion. Orders Ordered: ED Orders 05/20/19 19:00 XR foot LT min 3V Stat Discontinued Medications Digoxin (Lanoxin) 250 mcg IV NOW ONE Stop: 05/20/19 18:55 Last Admin: 05/20/19 19:27 Dose: 250 mcg Diltiazem HCl (Cardizem) 10 mg IV NOW ONE Stop: 05/20/19 18:23 Last Admin: 05/20/19 18:27 Dose: 10 mg Heparin Sodium (Porcine) (Heparin) 7,800 unit 80 unit/kg (7800 unit) IV NOW ONE Stop: 05/20/19 18:55 Last Admin: 05/20/19 19:36 Dose: 7,800 unit Heparin Sodium/Dextrose (Heparin Drip) 25,000 unit in 500 mls @ 35.271 mls/hr IV CONT SALOMÓN; Protocol Last Admin: 05/20/19 19:43 Dose: 18 units/kg/hr, 35.271 mls/hr DILTIAZEM (Diltiazem 125 Mg/125 Ml-D5w) 125 mg in 125 mls @ 5 mls/hr IV TITRATE SALOMÓN; Protocol Last Admin: 05/20/19 19:32 Dose: 5 mg/hr, 5 mls/hr Morphine Sulfate (Morphine) 4 mg IV NOW ONE Stop: 05/20/19 17:44 Last Admin: 05/20/19 18:12 Dose: 4 mg Consultations Consultation #1: call to cardiology at [facility] to discuss care fore acutely occluded vasculature. Dr. Lewis has spoken with Dr. Mera and they have reviewed the chart and are comfortable caring for patient. They are happy with Heparin bolus and drip and recommend admission to hospitalist Hospitalist at [facility] happy to accept Some delay in transfer due to availablity of EMS Vital Signs - 8 hr 05/20/19 20:30 05/20/19 21:20 05/20/19 22:15 Pulse Rate 137 H 119 H 117 H Respiratory Rate 19 Blood Pressure Blood Pressure [Left Arm] 107/48 L 131/87 107/56 L Pulse Oximetry 96 98 92 05/20/19 23:30 05/21/19 00:04 05/21/19 00:13 Pulse Rate 124 H 129 H 110 H Respiratory Rate 15 18 Blood Pressure Blood Pressure [Left Arm] 118/49 L 91/47 L 106/57 L Pulse Oximetry 96 93 97 05/21/19 00:45 05/21/19 01:44 Pulse Rate 123 H 123 H Respiratory Rate 8 L 20 Blood Pressure 144/79 H Blood Pressure [Left Arm] 113/46 L Pulse Oximetry 94 96 MDM - Extremity (Nontraumatic) Lab Data Result diagrams: 05/20/19 18:00 05/20/19 18:00 Lab Results 05/20/19 05/20/19 05/20/19 Range/Units 18:00 18:00 18:00 WBC 10.1 (4.5-11.0) X10^3/uL RBC 4.03 L (4.5-5.9) X10^6/uL Hgb 11.1 L (13.5-17.5) g/dL Hct 33.2 L (41-53) % MCV 82.3 (80-100) fL MCH 27.5 (26-34) PG MCHC 33.4 (30-36) % RDW 17.7 H (11.6-14.8) % Plt Count 636 H (150-400) X10^3/uL Neut % (Auto) 80.5 H (50-75) % Lymph % (Auto) 9.0 L (25-40) % [place] % (Auto) 7.8 (3-14) % Eos % (Auto) 1.6 L (2-4) % Baso % (Auto) 1.1 (0-2) % Neut # (Auto) 8100 H (5587-3721) /uL Lymph # (Auto) 900 L (3092-1646) /uL [place] # (Auto) 800 (0-900) /uL Eos # (Auto) 200 (0-450) /uL Baso # (Auto) 100 (0-100) /uL APTT (26.4-36.2) SECONDS Sodium 131 L (137-145) mmol/L Potassium 4.1 (3.4-5.1) mmol/L Chloride 95 L (98-107) mmol/L Carbon Dioxide 25 (22-32) mmol/L BUN 19 (9-20) mg/dL Creatinine 1.10 (0.66-1.25) mg/dL Estimated GFR > 60.0 (>60) mL/min BUN/Creatinine Ratio 17.3 (6-22) Glucose 177 H (80-110) mg/dL Lactate 1.5 (0.7-2.1) mmol/L Calcium 9.7 (8.4-10.2) mg/dL Total Bilirubin 1.1 (0.2-1.3) mg/dL AST 48 (17-59) IU/L ALT 39 (21-72) IU/L Alkaline Phosphatase 102 (38-126) U/L Total Protein 8.1 (6.3-8.2) g/dL Albumin 3.9 (3.5-5.0) g/dL Globulin 4.2 H (1.7-4.1) g/dL Albumin/Globulin Ratio 0.9 L (1.0-2.8) 05/20/19 Range/Units 18:00 WBC (4.5-11.0) X10^3/uL RBC (4.5-5.9) X10^6/uL Hgb (13.5-17.5) g/dL Hct (41-53) % MCV (80-100) fL MCH (26-34) PG MCHC (30-36) % RDW (11.6-14.8) % Plt Count (150-400) X10^3/uL Neut % (Auto) (50-75) % Lymph % (Auto) (25-40) % [place] % (Auto) (3-14) % Eos % (Auto) (2-4) % Baso % (Auto) (0-2) % Neut # (Auto) (9655-0275) /uL Lymph # (Auto) (8837-9063) /uL [place] # (Auto) (0-900) /uL Eos # (Auto) (0-450) /uL Baso # (Auto) (0-100) /uL APTT 37 H D (26.4-36.2) SECONDS Sodium (137-145) mmol/L Potassium (3.4-5.1) mmol/L Chloride (98-107) mmol/L Carbon Dioxide (22-32) mmol/L BUN (9-20) mg/dL Creatinine (0.66-1.25) mg/dL Estimated GFR (>60) mL/min BUN/Creatinine Ratio (6-22) Glucose (80-110) mg/dL Lactate (0.7-2.1) mmol/L Calcium (8.4-10.2) mg/dL Total Bilirubin (0.2-1.3) mg/dL AST (17-59) IU/L ALT (21-72) IU/L Alkaline Phosphatase (38-126) U/L Total Protein (6.3-8.2) g/dL Albumin (3.5-5.0) g/dL Globulin (1.7-4.1) g/dL Albumin/Globulin Ratio (1.0-2.8) Critical Care Time Critical Care Time: Yes Total Critical Care Time: 30 Attestation: The high probability of a clinically significant, sudden or life threatening deterioration of the [CV] system(s) required my full and direct attention, intervention and personal management. The aggregate critical care time was [30] minutes. This time is in addition to time spent performing reported procedures but includes the following: [x] Data Review and interpretation [x] Patient assessment and monitoring of vital signs [x] Documentation [x] Medication orders and management Discharge Plan Departure Patient Disposition: [facility] Clinical Impression: Arterial occlusion, lower extremity, Atrial fibrillation with RVR Discharge Date/Time: 05/21/19 01:44 Prescriptions: No Action Atorvastatin Calcium (Lipitor) Qty: 0 RF: 0 aspirin [Aspirin Low Dose] 81 mg Tablet,Delayed Release (Dr/Ec) 1 tab PO DAILY Qty: 0 RF: 0 NADOLOL (Corgard) Qty: 0 RF: 0 furosemide 40 mg tablet 40 mg PO BID RF: 0 triamterene-hydrochlorothiazid 37.5-25 mg capsule 1 cap PO DAILY RF: 0 cephalexin 500 mg capsule 500 mg PO QID RF: 0 losartan 100 mg tablet 100 mg PO DAILY RF: 0 oxycodone 5 mg tablet 5 mg PO Q4-6H PRN (Reason: pain) RF: 0 bupropion HCl 150 mg tablet extended release 24 hr 150 mg PO DAILY RF: 0 clindamycin HCl 300 mg capsule 300 mg PO QID Qty: 28 RF: 0 Referrals: Brien Sharpe MD [Primary Care Provider] -
[2019-05-20 19:16] LABS: PTT Partial Thromboplastin Tim 37 SECONDS (26.4-36.2)
[2019-05-20] MEDS: DIGOXIN 500 MCG/2 ML AMPUL 250 MCG IV (19:27)
[2019-05-20] MEDS: DILTIAZEM 125 MG/125 ML PIGGYBACK IV (19:32)
[2019-05-20] MEDS: HEPARIN 5,000 UNIT/ML VIAL 7800 UNIT IV (19:36)
[2019-05-20] MEDS: HEPARIN DRIP 25,000 UNIT/500 ML IV.SOLN 35.271 UNIT IV (19:43)
--- NOTE | 2019-05-20 21:33 | PC.NURSE ---
Horacio Flood (son) would like to be called when father leaves. Phone number [phone]
[2019-05-21 00:04] VITALS: BP 91/47; PULSE 129; RESP 15; O2SAT 93
[2019-05-21 00:13] VITALS: BP 106/57; PULSE 110; RESP 18; O2SAT 97
--- NOTE | 2019-05-21 00:28 | PC.NURSE ---
again offered repositioning r/t chronic stasis ulcers pt declined
[2019-05-21 00:45] VITALS: BP 113/46; PULSE 123; RESP 8; O2SAT 94
--- NOTE | 2019-05-21 01:34 | PC.NURSE ---
no drainage from velasquez x2 hours, bladder scan showed 300ml, flow restored with light hand irrigation, pt denies discomfort, output to velasquez remains rust colored
--- NOTE | 2019-05-21 01:36 | PC.NURSE ---
report called to Linda LY at [facility] [id number]
[2019-05-21 01:44] VITALS: BP 144/79; PULSE 123; RESP 20; O2SAT 96
--- NOTE | 2019-06-12 19:30 | PC.NURSE ---
late entry. critical care time for patient was 30 mins.. Pt was is afib with RVR. pt received Cardizem and was placed on a continuous drip of the medication. Pt also was started on Heparin drip per recommendation of cardiology after receiving the Heparin bolus for his occluded vascularity. report was handed off to ALIYAH Rogers and pt was transferred to [facility] during his shift.
== END 2019-05-21 01:44 | disposition short-term general hospital (02) ==
PROVIDERS: Emergency Medicine; Emergency Provider Emergency Medicine; Family Provider Family Medicine; PCP Family Medicine
DX: I70.209 Unspecified atherosclerosis of native arteries of extremities, unspecified extremity (principal); I48.91 Unspecified atrial fibrillation
CPT/HCPCS: 36591; 73630; 80053; 83605; 85025; 85730; 93005; 93041; 93926; 93971; 96365; 96366; 96368; 96375; 96376; 99285; 99291; J1160; J1644; J2270

== ENCOUNTER → 2019-07-06 14:21 | Outpatient (CLI) | payer MEDICARE, SELFPAY | PROVIDERS: Family Provider Family Medicine; PCP Family Medicine; Visit Provider Podiatrist Primary Podiatric Medicine | DX: I70.245 Atherosclerosis of native arteries of left leg with ulceration of other part of foot (principal); E11.622 Type 2 diabetes mellitus with other skin ulcer; L97.526 Non-pressure chronic ulcer of other part of left foot with bone involvement without evidence of necrosis; L97.522 Non-pressure chronic ulcer of other part of left foot with fat layer exposed; E11.51 Type 2 diabetes mellitus with diabetic peripheral angiopathy without gangrene; L97.521 Non-pressure chronic ulcer of other part of left foot limited to breakdown of skin; E11.40 Type 2 diabetes mellitus with diabetic neuropathy, unspecified | CPT/HCPCS: 11042; 11045; 97597; 99213 ==

== ENCOUNTER → 2019-07-13 10:24 | Outpatient (CLI) | payer MEDICARE, SELFPAY | PROVIDERS: Family Provider Family Medicine; PCP Family Medicine; Visit Provider Podiatrist Primary Podiatric Medicine | DX: I70.245 Atherosclerosis of native arteries of left leg with ulceration of other part of foot (principal); E11.52 Type 2 diabetes mellitus with diabetic peripheral angiopathy with gangrene | CPT/HCPCS: 11042; 11044; 11047; 97605; 99212 ==

== ENCOUNTER → 2019-07-20 13:39 | Outpatient (CLI) | payer MEDICARE, SELFPAY | PROVIDERS: Family Provider Family Medicine; PCP Family Medicine; Visit Provider Podiatrist Primary Podiatric Medicine | DX: I70.245 Atherosclerosis of native arteries of left leg with ulceration of other part of foot (principal); L97.525 Non-pressure chronic ulcer of other part of left foot with muscle involvement without evidence of necrosis; L97.421 Non-pressure chronic ulcer of left heel and midfoot limited to breakdown of skin | CPT/HCPCS: 97597; 97598 ==

== ENCOUNTER → 2019-07-27 13:35 | Outpatient (CLI) | payer SELFPAY | PROVIDERS: Family Provider Family Medicine; PCP Family Medicine; Visit Provider Podiatrist Primary Podiatric Medicine | DX: I70.245 Atherosclerosis of native arteries of left leg with ulceration of other part of foot (principal); E11.622 Type 2 diabetes mellitus with other skin ulcer; L97.526 Non-pressure chronic ulcer of other part of left foot with bone involvement without evidence of necrosis; L97.529 Non-pressure chronic ulcer of other part of left foot with unspecified severity; E11.51 Type 2 diabetes mellitus with diabetic peripheral angiopathy without gangrene; E11.40 Type 2 diabetes mellitus with diabetic neuropathy, unspecified | CPT/HCPCS: 97597; 97598 ==

== ENCOUNTER → 2019-08-03 13:00 | Outpatient (CLI) | payer MEDICARE, SELFPAY | PROVIDERS: Family Provider Family Medicine; PCP Family Medicine; Visit Provider Podiatrist Primary Podiatric Medicine | DX: I70.245 Atherosclerosis of native arteries of left leg with ulceration of other part of foot (principal); E11.622 Type 2 diabetes mellitus with other skin ulcer; E11.52 Type 2 diabetes mellitus with diabetic peripheral angiopathy with gangrene; E11.40 Type 2 diabetes mellitus with diabetic neuropathy, unspecified; L97.526 Non-pressure chronic ulcer of other part of left foot with bone involvement without evidence of necrosis; L97.529 Non-pressure chronic ulcer of other part of left foot with unspecified severity; L97.429 Non-pressure chronic ulcer of left heel and midfoot with unspecified severity | CPT/HCPCS: 11042; 11043; 87070; 87075; 87077; 87147; 87185; 87186; 87205; 97597 ==

== ENCOUNTER → 2019-08-10 08:42 | Outpatient (CLI) | payer MEDICARE, SELFPAY | PROVIDERS: Family Provider Family Medicine; PCP Family Medicine; Visit Provider Podiatrist Primary Podiatric Medicine | DX: E11.621 Type 2 diabetes mellitus with foot ulcer (principal); I70.245 Atherosclerosis of native arteries of left leg with ulceration of other part of foot; L97.526 Non-pressure chronic ulcer of other part of left foot with bone involvement without evidence of necrosis; L97.521 Non-pressure chronic ulcer of other part of left foot limited to breakdown of skin; L97.421 Non-pressure chronic ulcer of left heel and midfoot limited to breakdown of skin; E11.51 Type 2 diabetes mellitus with diabetic peripheral angiopathy without gangrene | CPT/HCPCS: 11042; 11045; 97597; 97605; 99213 ==

== ENCOUNTER → 2019-08-17 14:14 | Outpatient (CLI) | payer MEDICARE, SELFPAY | PROVIDERS: Family Provider Family Medicine; PCP Family Medicine; Visit Provider Podiatrist Primary Podiatric Medicine | DX: I70.245 Atherosclerosis of native arteries of left leg with ulceration of other part of foot (principal); E11.622 Type 2 diabetes mellitus with other skin ulcer; L97.526 Non-pressure chronic ulcer of other part of left foot with bone involvement without evidence of necrosis; L97.528 Non-pressure chronic ulcer of other part of left foot with other specified severity; L97.428 Non-pressure chronic ulcer of left heel and midfoot with other specified severity; L97.521 Non-pressure chronic ulcer of other part of left foot limited to breakdown of skin; R60.0 Localized edema; E11.40 Type 2 diabetes mellitus with diabetic neuropathy, unspecified; E11.51 Type 2 diabetes mellitus with diabetic peripheral angiopathy without gangrene; E11.52 Type 2 diabetes mellitus with diabetic peripheral angiopathy with gangrene | CPT/HCPCS: 15275; 97597; Q4196 ==

== ENCOUNTER → 2019-08-24 10:29 | Outpatient (CLI) | payer MEDICARE, SELFPAY | PROVIDERS: Family Provider Family Medicine; PCP Family Medicine; Visit Provider Podiatrist Primary Podiatric Medicine | DX: E11.621 Type 2 diabetes mellitus with foot ulcer (principal); I70.245 Atherosclerosis of native arteries of left leg with ulceration of other part of foot; E11.52 Type 2 diabetes mellitus with diabetic peripheral angiopathy with gangrene; L97.526 Non-pressure chronic ulcer of other part of left foot with bone involvement without evidence of necrosis; L97.521 Non-pressure chronic ulcer of other part of left foot limited to breakdown of skin; L97.529 Non-pressure chronic ulcer of other part of left foot with unspecified severity; R60.0 Localized edema; E11.622 Type 2 diabetes mellitus with other skin ulcer | CPT/HCPCS: 15275; 97597; Q4196 ==

== ENCOUNTER → 2019-08-31 16:20 | Outpatient (CLI) | payer MEDICARE, SELFPAY | PROVIDERS: Family Provider Family Medicine; PCP Family Medicine; Visit Provider Podiatrist Primary Podiatric Medicine | DX: I70.245 Atherosclerosis of native arteries of left leg with ulceration of other part of foot (principal); E10.622 Type 1 diabetes mellitus with other skin ulcer; E11.52 Type 2 diabetes mellitus with diabetic peripheral angiopathy with gangrene; E11.40 Type 2 diabetes mellitus with diabetic neuropathy, unspecified; L97.526 Non-pressure chronic ulcer of other part of left foot with bone involvement without evidence of necrosis; L97.429 Non-pressure chronic ulcer of left heel and midfoot with unspecified severity; L97.529 Non-pressure chronic ulcer of other part of left foot with unspecified severity; R60.0 Localized edema | CPT/HCPCS: 15275; 97597; Q4196 ==

== ENCOUNTER → 2019-09-07 14:30 | Outpatient (CLI) | payer MEDICARE, SELFPAY | PROVIDERS: Family Provider Family Medicine; PCP Family Medicine; Visit Provider Family Medicine | DX: E11.52 Type 2 diabetes mellitus with diabetic peripheral angiopathy with gangrene (principal); E11.621 Type 2 diabetes mellitus with foot ulcer; L97.526 Non-pressure chronic ulcer of other part of left foot with bone involvement without evidence of necrosis; L97.421 Non-pressure chronic ulcer of left heel and midfoot limited to breakdown of skin; L97.529 Non-pressure chronic ulcer of other part of left foot with unspecified severity | CPT/HCPCS: 11043; 97597; 99214 ==

== ENCOUNTER → 2019-09-14 10:35 | Outpatient (CLI) | payer MEDICARE, SELFPAY | PROVIDERS: Family Provider Family Medicine; PCP Family Medicine; Visit Provider Podiatrist Primary Podiatric Medicine | DX: I70.245 Atherosclerosis of native arteries of left leg with ulceration of other part of foot (principal); I70.244 Atherosclerosis of native arteries of left leg with ulceration of heel and midfoot; E11.622 Type 2 diabetes mellitus with other skin ulcer; L97.522 Non-pressure chronic ulcer of other part of left foot with fat layer exposed; L97.523 Non-pressure chronic ulcer of other part of left foot with necrosis of muscle | CPT/HCPCS: 15275; Q4101 ==

== ENCOUNTER → 2019-09-21 09:36 | Outpatient (CLI) | payer MEDICARE, SELFPAY | PROVIDERS: Family Provider Family Medicine; PCP Family Medicine; Visit Provider Family Medicine | DX: E11.621 Type 2 diabetes mellitus with foot ulcer (principal); L97.521 Non-pressure chronic ulcer of other part of left foot limited to breakdown of skin; L97.421 Non-pressure chronic ulcer of left heel and midfoot limited to breakdown of skin; E11.51 Type 2 diabetes mellitus with diabetic peripheral angiopathy without gangrene; R60.0 Localized edema | CPT/HCPCS: 15275; 97597; Q4101 ==

== ENCOUNTER → 2019-09-28 13:00 | Outpatient (CLI) | payer MEDICARE, SELFPAY | PROVIDERS: Family Provider Family Medicine; PCP Family Medicine; Visit Provider Podiatrist Primary Podiatric Medicine | DX: E11.621 Type 2 diabetes mellitus with foot ulcer (principal); L97.521 Non-pressure chronic ulcer of other part of left foot limited to breakdown of skin; L97.421 Non-pressure chronic ulcer of left heel and midfoot limited to breakdown of skin; E11.40 Type 2 diabetes mellitus with diabetic neuropathy, unspecified | CPT/HCPCS: 15275; 97597; Q4101 ==

== ENCOUNTER → 2019-10-05 15:13 | Outpatient (CLI) | payer MEDICARE, SELFPAY | PROVIDERS: PCP Family Medicine; Visit Provider Family Medicine | DX: E11.621 Type 2 diabetes mellitus with foot ulcer (principal); L97.521 Non-pressure chronic ulcer of other part of left foot limited to breakdown of skin; L97.421 Non-pressure chronic ulcer of left heel and midfoot limited to breakdown of skin | CPT/HCPCS: 15275; 97597; Q4101 ==

== ENCOUNTER → 2019-10-19 13:15 | Outpatient (CLI) | payer MEDICARE, SELFPAY | PROVIDERS: PCP Family Medicine; Visit Provider Family Medicine | DX: E11.621 Type 2 diabetes mellitus with foot ulcer (principal); L97.523 Non-pressure chronic ulcer of other part of left foot with necrosis of muscle; L97.521 Non-pressure chronic ulcer of other part of left foot limited to breakdown of skin; L97.421 Non-pressure chronic ulcer of left heel and midfoot limited to breakdown of skin; R60.0 Localized edema | CPT/HCPCS: 11042; 11043; 36415; 73630; 80053; 85025 ==

== ENCOUNTER → 2019-10-19 | Outpatient (CLI) | payer MEDICARE, SELFPAY ==
--- NOTE | 2019-10-19 | DI.RAD.S_ITS ---
PROCEDURE: XR FOOT LT MIN 3V INDICATIONS: pressure ulcer left foot TECHNIQUE: 3 views of the foot were acquired. COMPARISON: [facility], CR, XR FOOT LT MIN 3V, 05/20/2019, 19:03. FINDINGS: Bones: No fractures or dislocations. No suspicious bony lesions. Post surgical changes related dictation of the first second and third toes at the level of the proximal phalanges. No definite focal osseous destruction. Diffuse interphalangeal joint degeneration. Diffuse midfoot joint degeneration, subchondral sclerosis and spurring plantar and posterior calcaneal spurring. Tibiotalar degenerative joint disease. Soft tissues: No tibiotalar joint effusion. Achilles tendon appears normal. IMPRESSION: No focal osseous destruction to suggest advanced osteomyelitis. If there is persistent clinical concern, continued short interval radiographic followup or contrast enhanced MRI could be performed to assess for early infection. Degenerative and post surgical changes as above. Diffuse midfoot degeneration and sclerosis raise the possibility of neuropathic arthropathy Dictated by: Jesús Chase M.D. on 10/19/2019 at 18:05 Approved by: Jesús Chase M.D. on 10/19/2019 at 18:08
[2019-10-19 14:23] LABS: Add Manual Diff / Slide Review NO; Basophils Absolute Auto 100 /uL (0-100); Eosinophils Absolute Auto 400 /uL (0-450); Eosinophils Percent Auto 5.7 % (2-4); Hematocrit 36.9 % (41-53); Hemoglobin 12.5 g/dL (13.5-17.5); Lymphocytes Absolute Auto 1400 /uL (1100-4500); Lymphocytes Percent Auto 22.4 % (25-40); Mean Corpuscular HGB Conc 33.8 % (30-36); Mean Corpuscular Hemoglobin 27.2 PG (26-34); Mean Corpuscular Volume 80.4 fL (80-100); Monocytes Absolute Auto 800 /uL (0-900); Monocytes Percent Auto 12.1 % (3-14); Neutrophils Absolute Auto 3800 /uL (1500-7000); Neutrophils Percent Auto 58.8 % (50-75); Platelet Count 200 X10^3/uL (150-400); Red Cell Distribution Width 19.9 % (11.6-14.8); White Blood Cell Count 6.4 X10^3/uL (4.5-11.0)
[2019-10-19 15:14] LABS: Alanine Aminotransferase 20 IU/L (<50); Albumin 3.8 g/dL (3.5-5.0); Albumin Globulin Ratio 1.3 (1.0-2.8); Alkaline Phosphatase 114 U/L (38-126); Aspartate Aminotransferase 31 IU/L (17-59); BUN Creatinine Ratio 15.5 (6-22); Bilirubin Total 0.9 mg/dL (0.2-1.3); Blood Urea Nitrogen 17 mg/dL (9-20); Calcium 9.4 mg/dL (8.4-10.2); Carbon Dioxide 26 mmol/L (22-32); Chloride 98 mmol/L (98-107); Estimated Glomerular Filt Rate > 60.0 mL/min (>60); Glucose 126 mg/dL (80-110); HEMOLYSIS < 15 (0-50); Potassium 4.3 mmol/L (3.4-5.1); Sodium 134 mmol/L (137-145); Total Protein 6.8 g/dL (6.3-8.2)
== END ==
PROVIDERS: PCP Family Medicine; Visit Provider Family Medicine
DX: I96 Gangrene, not elsewhere classified (principal); I10 Essential (primary) hypertension; L97.523 Non-pressure chronic ulcer of other part of left foot with necrosis of muscle; E11.621 Type 2 diabetes mellitus with foot ulcer
CPT/HCPCS: 36415; 73630; 80053; 85025

== ENCOUNTER 2019-10-22 23:10 | Emergency (ER) | payer MEDICARE, SELFPAY ==
[2019-10-22 23:24] VITALS: BP 153/52; PULSE 90; RESP 15; TEMP 38.6; O2SAT 93; BMI 33.0
--- NOTE | 2019-10-22 23:27 | ED_ITS ---
HPI - Fever General Chief Complaint: Fever Stated Complaint: infection in left foot Time Seen by Provider: 10/22/19 23:13 Source: patient and family Mode of arrival: Wheelchair Limitations: no limitations History of Present Illness HPI Narrative: 79-year-old male former smoker with extensive medical history including peripheral vascular disease, type 2 diabetes, hypertension, hyperlipidemia presents with his son and a chief complaint of a rather rapid onset fever, weakness and generally feeling unwell over the past day or 2. He was seen here in April and diagnosed with an acute arterial occlusion in his left lower extremity and was sent to [facility] for continuity of care given his history of a by fem-pop bypass their years ago. He was eventually transferred to [facility] due to it need for higher level of care and had been at [facility] until about 1 week ago when he was discharged home. He has been having frequent evaluations by wound care and has been off antibiotics for least 1 week. Over the past day or 2 he has had increased redness in his left anterior aguilar with drainage from the dorsum of his foot but by and large his foot looks at his baseline. He was seen and evaluated by wound care on Saturday. He denies other symptoms such as runny nose, sore throat or cough. He has had no chest pain or shortness of breath. He denies nausea, vomiting or diarrhea. He denies any problems with bowel or bladder. MD complaint: fever and weakness Onset (ago): day(s) Temperature Source: oral Associated symptoms: chills, rigors and myalgias Related Data Home Medications Medication Instructions Recorded Confirmed bupropion HCl 150 mg PO DAILY 12/04/18 10/23/19 losartan 100 mg PO DAILY 12/04/18 10/23/19 amiodarone 200 mg PO DAILY 10/23/19 10/23/19 amlodipine 5 mg PO DAILY 10/23/19 10/23/19 apixaban [Eliquis] 5 mg PO BID 10/23/19 10/23/19 atorvastatin 80 mg PO DAILY 10/23/19 10/23/19 baclofen 10 mg PO BID 10/23/19 10/23/19 finasteride 5 mg PO DAILY 10/23/19 10/23/19 gabapentin 300 mg PO BID 10/23/19 10/23/19 metoprolol tartrate 25 mg PO BID 10/23/19 10/23/19 nitroglycerin 0.4 mg SUBLINGUAL Q5M PRN 10/23/19 10/23/19 omeprazole 40 mg PO BID 10/23/19 10/23/19 oxycodone 5 mg PO Q6H PRN 10/23/19 10/23/19 tamsulosin 0.4 mg PO DAILY 10/23/19 10/23/19 Allergies Allergy/AdvReac Type Severity Reaction Status Date / Time No Known Drug Allergies Allergy Verified 10/22/19 23:24 Review of Systems Constitutional Constitutional: Reports chills, Reports fatigue, Reports fever(s), Denies frequent falls, Denies lethargy and Denies weakness Eyes Eyes: Denies change in vision, Denies eye discharge, Denies irritation and Denies loss of vision ENT Ears, Nose, Mouth, and Throat: Denies change in voice, Denies dizziness, Denies neck pain, Denies sore throat and Denies throat swelling Cardiovascular Cardiovascular: Denies chest pain, Denies irregular heart rhythm, Denies lightheadedness, Denies palpitations, Denies dyspnea, Denies dyspnea on exertion and Denies orthopnea Respiratory Respiratory: Denies cough, Denies dyspnea, Denies dyspnea on exertion and Denies wheezing Gastrointestinal Gastrointestinal: Denies abdominal pain, Denies change in bowel habits, Denies diarrhea, Denies nausea and Denies vomiting Genitourinary Genitourinary: Denies hematuria, Denies flank pain, Denies urinary incontinence and Denies urinary urgency Musculoskeletal Musculoskeletal: Denies back pain, Denies muscle weakness, Denies neck pain, Denies numbness and Denies tingling Integumentary/Breasts Skin/Breast: Denies pruritus, Reports erythema, Reports rash, Reports skin pain, Reports skin swelling and Reports wounds Neurologic Neurologic: Denies behavioral changes, Denies confusion, Denies dizziness, Denies frequent falls, Denies loss of vision, Denies numbness, Denies tingling and Denies weakness Psychiatric Psychiatric: Denies anxiety, Denies behavioral changes, Denies confusion, Denies depression, Denies homicidal ideation and Denies suicidal ideation Endocrine Endocrine: Reports fatigue, Denies flushing and Denies palpitations Hematologic/Lymphatic Hematologic/Lymphatic: Denies easy bruising Allergic/Immunologic Allergic/Immunologic: Denies urticaria, Denies throat swelling and Denies wheezing Patient History Medical History Hypertension (Acute) Surgical History No pertinent past surgical history (Acute) Social History Smoking Status: Former smoker Smoking Status: Former smoker alcohol intake frequency: a few times a week Substance Use Type: does not use Exam Narrative Exam Narrative: GENERAL: [79] year old patient appears stated age. Chronically ill and generally unwell. Obviously feeling poorly, a bit confused HEAD: Atraumatic. Normocephalic. EYES: Pupils equal round and reactive. Extraocular motions intact. No scleral icterus. No injection or drainage. ENT: Nose without bleeding, purulent drainage. Throat without erythema, tonsillar hypertrophy or exudate. Airway patent. NECK: Trachea midline. Non tender CARDIOVASCULAR: Regular rate and rhythm without murmurs, gallops, or rubs. RESPIRATORY: Decreased breath sounds bilaterally with prolonged expiratory phase i. GASTROINTESTINAL: Abdomen soft, non-tender, nondistended. EXTREMITIES: No edema or joint tenderness. BACK: Nontender without deformity or crepitance. No flank tenderness. NEURO: AOx3. SKIN: New erythema on anterior left lower extremity with skin largely intact. Left foot is edematous, erythematous with some foul-smelling exudate coming from the 1st, 2nd and 3rd MTP. Insensate. RLE with signs of chronic venous stasis, at baseline per son. Initial Vital Signs Initial Vital Signs: Vital Signs Temperature 101.4 F H 10/22/19 23:24 Pulse Rate 90 10/22/19 23:24 Respiratory Rate 15 10/22/19 23:24 Blood Pressure 153/52 H 10/22/19 23:24 Pulse Oximetry 93 10/22/19 23:24 Course Course Course Narrative: Patient has a rapid decline and fever for sepsis due to infection is left lower extremity. Cultures from July note perceived susceptibility to the combination of Vanco and Levaquin. Records requested from both [facility] and [facility]. Hospitalist asked to see the patient early in the visit to determine appropriateness of local admission after discussion with family, her own exam, and discussion of recent hospitalization our hospitalist refuses admission stating the complexity of his illness and lack of access to resources and probable needed specialties LRINEC Score for Necrotizing Soft Tissue Infection from [employer] on 10/23/2019 All calculations should be rechecked by clinician prior to use RESULT SUMMARY: 3 points If high suspicion for necrotizing fasciitis through clinical history and physical exam, do not calculate a LRINEC score and go straight to operative debridement. Consider IV antibiotics and serial labs to monitor response to treatment. Scores <6 were low risk ? but not no risk ? for necrotizing soft tissue infections. INPUTS: C-reactive protein ?> 0 = <15 mg/dL (150 mg/L) White blood cell count (x10,000/?L) ?> 0 = <15 Hemoglobin (g/dL) ?> 1 = 11-13.5 Sodium (mEq/L) ?> 2 = <135 Creatinine ?> 0 = ?1.6 mg/dL (141 ?mol/L) Glucose ?> 0 = ?180 mg/dL (10 mmol/L) Orders Ordered: ED Orders 10/22/19 23:48 XR foot LT min 3V Stat 10/22/19 23:50 Blood Culture Stat Complete Blood Count AUTO DIFF Stat Comprehensive Metabolic Panel Stat Lactate (Lactic Acid) Stat Procalcitonin Stat 10/23/19 00:00 Wound Culture and Gram Stain Stat 10/23/19 00:06 C-Reactive Protein Quant Stat Erythrocyte Sedimentation Rate Stat Discontinued Medications Vancomycin HCl/Dextrose (Vancomycin) 1,500 mg in 300 mls @ 200 mls/hr IV NOW ONE Stop: 10/23/19 01:16 Last Admin: 10/23/19 00:33 Dose: 200 mls/hr Documented by: KBROTEM Levofloxacin (Levaquin) 500 mg in 100 mls @ 100 mls/hr IV NOW ONE Stop: 10/23/19 00:46 Consultations Consultation #1: hospitalist at [facility] is happy to accept patient. Family and patient are aware of plan and in full agreement. Vital Signs Vital signs: Vital Signs - 8 hr 10/22/19 23:24 Temperature 101.4 F H Pulse Rate 90 Respiratory Rate 15 Blood Pressure 153/52 H Pulse Oximetry 93 MDM - Fever Lab Data Result diagrams: 10/22/19 23:50 10/22/19 23:50 Labs: Lab Results 10/22/19 10/22/19 10/22/19 Range/Units 23:50 23:50 23:50 WBC 5.1 (4.5-11.0) X10^3/uL RBC 4.06 L (4.5-5.9) X10^6/uL Hgb 11.0 L (13.5-17.5) g/dL Hct 32.1 L (41-53) % MCV 79.2 L (80-100) fL MCH 27.0 (26-34) PG MCHC 34.2 (30-36) % RDW 19.5 H (11.6-14.8) % Plt Count 188 (150-400) X10^3/uL Neut % (Auto) 70.1 (50-75) % Lymph % (Auto) 13.5 L (25-40) % Addison % (Auto) 13.0 (3-14) % Eos % (Auto) 2.4 (2-4) % Baso % (Auto) 1.0 (0-2) % Neut # (Auto) 3600 (8827-9529) /uL Lymph # (Auto) 700 L (5114-2719) /uL Addison # (Auto) 700 (0-900) /uL Eos # (Auto) 100 (0-450) /uL Baso # (Auto) 0 (0-100) /uL ESR (0-15) MM/HR Sodium 131 L (137-145) mmol/L Potassium 3.9 (3.4-5.1) mmol/L Chloride 98 (98-107) mmol/L Carbon Dioxide 26 (22-32) mmol/L BUN 12 (9-20) mg/dL Creatinine 1.00 (0.66-1.25) mg/dL Estimated GFR > 60.0 (>60) mL/min BUN/Creatinine Ratio 12.0 (6-22) Glucose 134 H (80-110) mg/dL Lactate (0.7-2.1) mmol/L Calcium 8.8 (8.4-10.2) mg/dL Total Bilirubin 0.9 (0.2-1.3) mg/dL AST 32 (17-59) IU/L ALT 19 (<50) IU/L Alkaline Phosphatase 81 (38-126) U/L C-Reactive Protein (<1.0) mg/dL Total Protein 6.4 (6.3-8.2) g/dL Albumin 3.4 L (3.5-5.0) g/dL Globulin 3.0 (1.7-4.1) g/dL Albumin/Globulin Ratio 1.1 (1.0-2.8) Procalcitonin < 0.05 (<0.5) ng/mL 10/22/19 10/22/19 10/22/19 Range/Units 23:50 23:50 23:50 WBC (4.5-11.0) X10^3/uL RBC (4.5-5.9) X10^6/uL Hgb (13.5-17.5) g/dL Hct (41-53) % MCV (80-100) fL MCH (26-34) PG MCHC (30-36) % RDW (11.6-14.8) % Plt Count (150-400) X10^3/uL Neut % (Auto) (50-75) % Lymph % (Auto) (25-40) % Addison % (Auto) (3-14) % Eos % (Auto) (2-4) % Baso % (Auto) (0-2) % Neut # (Auto) (7779-9703) /uL Lymph # (Auto) (1739-4811) /uL Addison # (Auto) (0-900) /uL Eos # (Auto) (0-450) /uL Baso # (Auto) (0-100) /uL ESR 43 H (0-15) MM/HR Sodium (137-145) mmol/L Potassium (3.4-5.1) mmol/L Chloride (98-107) mmol/L Carbon Dioxide (22-32) mmol/L BUN (9-20) mg/dL Creatinine (0.66-1.25) mg/dL Estimated GFR (>60) mL/min BUN/Creatinine Ratio (6-22) Glucose (80-110) mg/dL Lactate 1.5 (0.7-2.1) mmol/L Calcium (8.4-10.2) mg/dL Total Bilirubin (0.2-1.3) mg/dL AST (17-59) IU/L ALT (<50) IU/L Alkaline Phosphatase (38-126) U/L C-Reactive Protein 6.8 H (<1.0) mg/dL Total Protein (6.3-8.2) g/dL Albumin (3.5-5.0) g/dL Globulin (1.7-4.1) g/dL Albumin/Globulin Ratio (1.0-2.8) Procalcitonin (<0.5) ng/mL Imaging Data Extremity x-ray #1: Attestation: I personally reviewed and interpreted this imaging study as follows: My Impression: No Osteomyelitis Radiologist's Impression: Osteopenia, no obvious osteomyelitis MDM Narrative Medical decision making narrative: RHONA Castillo Horacio Rknish ([phone]) states patient is DNR/DNI but wants full treatment, POLST is on file at [facility] Critical Care Time Critical Care Time Critical Care Time: Yes Total Critical Care Time: 35 Attestation: The high probability of a clinically significant, sudden or life threatening deterioration of the [CV] system(s) required my full and direct attention, intervention and personal management. The aggregate critical care time was [35] minutes. This time is in addition to time spent performing reported procedures but includes the following: [x] Data Review and interpretation [x] Patient assessment and monitoring of vital signs [x] Documentation [X] Medication orders and management Discharge Plan Departure Patient Disposition: [facility] Clinical Impression: Cellulitis Qualifiers: Site of cellulitis: extremity Site of cellulitis of extremity: lower extremity Laterality: left Qualified Code(s): L03.116 - Cellulitis of left lower limb Prescriptions: No Action losartan 100 mg tablet 100 mg PO DAILY RF: 0 bupropion HCl 150 mg tablet extended release 24 hr 150 mg PO DAILY RF: 0 atorvastatin 80 mg Tablet 80 mg PO DAILY RF: 0 amiodarone 200 mg Tablet 200 mg PO DAILY RF: 0 amlodipine 5 mg Tablet 5 mg PO DAILY RF: 0 omeprazole 40 mg Capsule,Delayed Release(Dr/Ec) 40 mg PO BID RF: 0 tamsulosin 0.4 mg Capsule 0.4 mg PO DAILY RF: 0 baclofen 10 mg Tablet 10 mg PO BID RF: 0 nitroglycerin 0.4 mg Tablet, Sublingual 0.4 mg SUBLINGUAL Q5M PRN (Reason: Chest Pain) RF: 0 gabapentin 300 mg Capsule 300 mg PO BID RF: 0 finasteride 5 mg Tablet 5 mg PO DAILY RF: 0 oxycodone 5 mg Tablet 5 mg PO Q6H PRN (Reason: Pain (Scale Score 1-3)) RF: 0 metoprolol tartrate 25 mg Tablet 25 mg PO BID RF: 0 Eliquis 5 mg Tablet 5 mg PO BID RF: 0 Referrals: Brien Sharpe MD [Primary Care Provider] -
--- NOTE | 2019-10-22 23:48 | DI.RAD.S_ITS ---
PROCEDURE: XR FOOT LT MIN 3V INDICATIONS: swelling, redness, possible osteomyelitis TECHNIQUE: 3 views of the foot were acquired. COMPARISON: Located Within [facility], CR, XR FOOT LT MIN 3V, 10/19/2019, 15:09. 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 No kavita erosive changes identified. No periosteal reaction identified. Calcaneal bone spurs are noted. Soft tissues: No tibiotalar joint effusion. Achilles tendon appears normal. No soft tissue gas. IMPRESSION: No kavita evidence of osteomyelitis. Plain film radiographs can be insensitive to osteomyelitis during the initial 15 days of the disease process. If there is clinical concern for osteomyelitis, then three-phase nuclear medicine bone scan should be considered for further evaluation. Dictated by: Isabella Gonzalez MD, PhD on 10/23/2019 at 8:46 Approved by: Isabella Gonzalez MD, PhD on 10/23/2019 at 8:48
[2019-10-23 00:10] LABS: Add Manual Diff / Slide Review NO; Basophils Absolute Auto 0 /uL (0-100); Eosinophils Absolute Auto 100 /uL (0-450); Eosinophils Percent Auto 2.4 % (2-4); Hematocrit 32.1 % (41-53); Lymphocytes Absolute Auto 700 /uL (1100-4500); Lymphocytes Percent Auto 13.5 % (25-40); Mean Corpuscular HGB Conc 34.2 % (30-36); Mean Corpuscular Volume 79.2 fL (80-100); Monocytes Absolute Auto 700 /uL (0-900); Neutrophils Absolute Auto 3600 /uL (1500-7000); Neutrophils Percent Auto 70.1 % (50-75); Platelet Count 188 X10^3/uL (150-400); Red Blood Cell Count 4.06 X10^6/uL (4.5-5.9); Red Cell Distribution Width 19.5 % (11.6-14.8); White Blood Cell Count 5.1 X10^3/uL (4.5-11.0)
[2019-10-23 00:24] LABS: Alanine Aminotransferase 19 IU/L (<50); Albumin 3.4 g/dL (3.5-5.0); Albumin Globulin Ratio 1.1 (1.0-2.8); Alkaline Phosphatase 81 U/L (38-126); Aspartate Aminotransferase 32 IU/L (17-59); Bilirubin Total 0.9 mg/dL (0.2-1.3); Blood Urea Nitrogen 12 mg/dL (9-20); Calcium 8.8 mg/dL (8.4-10.2); Carbon Dioxide 26 mmol/L (22-32); Chloride 98 mmol/L (98-107); Estimated Glomerular Filt Rate > 60.0 mL/min (>60); Glucose 134 mg/dL (80-110); HEMOLYSIS < 15 (0-50); Lactate (Lactic Acid) 1.5 mmol/L (0.7-2.1); Potassium 3.9 mmol/L (3.4-5.1); Sodium 131 mmol/L (137-145); Total Protein 6.4 g/dL (6.3-8.2)
[2019-10-23 00:31] LABS: Procalcitonin < 0.05 ng/mL (<0.5)
[2019-10-23] MEDS: VANCOMYCIN 1,500 MG/300 ML FROZ.PIGGY 200 MG IV (00:33)
[2019-10-23 00:34] LABS: Erythrocyte Sedimentation Rate 43 MM/HR (0-15)
[2019-10-23 00:36] LABS: C-Reactive Protein Quant 6.8 mg/dL (<1.0)
[2019-10-23] MEDS: levoFLOXacin 500 MG/100 ML PIGGYBACK 100 MG IV (02:02)
[2019-10-23 02:13] VITALS: BP 125/53; PULSE 76; RESP 18; TEMP 37.2; O2SAT 96
[2019-10-23 03:07] VITALS: BP 100/45; PULSE 78; RESP 18; TEMP 37.2; O2SAT 96
[2019-10-24 05:49] LABS: Acinetobacter baumannii Not Detected (Not Detect); Candida albicans Not Detected (Not Detect); Candida glabrata Not Detected (Not Detect); Candida krusei Not Detected (Not Detect); Candida parapsilosis Not Detected (Not Detect); Candida tropicalis Not Detected (Not Detect); E. coli Not Detected (Not Detect); Enterobacter cloacae complex Not Detected (Not Detect); Enterobacteriaceae species Not Detected (Not Detect); Enterococcus species Not Detected (Not Detect); Haemophilus influenzae Not Detected (Not Detect); Listeria monocytogenes Not Detected (Not Detect); Methicillin-resistant gene Not Detected (Not Detect); Neisseria meningitidis Not Detected (Not Detect); Proteus species Not Detected (Not Detect); Pseudomonas aeruginosa Not Detected (Not Detect); Serratia marcescens Not Detected (Not Detect); Staphylococcus species Detected (Not Detect); Streptococcus agalactiae (Gr B Not Detected (Not Detect); Streptococcus pneumonia Not Detected (Not Detect); Streptococcus pyogenes (Gr A) Not Detected (Not Detect); Streptococcus species Not Detected (Not Detect)
--- NOTE | 2019-10-24 06:26 | PC.NURSE ---
Report faxed to [facility].
== END 2019-10-23 03:10 | disposition short-term general hospital (02) ==
PROVIDERS: Emergency Provider Emergency Medicine; PCP Family Medicine
DX: L03.116 Cellulitis of left lower limb (principal); E11.8 Type 2 diabetes mellitus with unspecified complications
CPT/HCPCS: 36415; 73630; 80053; 83605; 84145; 85025; 85651; 86140; 87040; 87070; 87077; 87147; 87150; 87186; 87205; 96365; 96367; 99284; 99291; J1956

== ENCOUNTER → 2019-11-03 13:19 | Outpatient (CLI) | payer MEDICARE, SELFPAY | PROVIDERS: PCP Family Medicine; Visit Provider Family Medicine | DX: E11.621 Type 2 diabetes mellitus with foot ulcer (principal); L97.524 Non-pressure chronic ulcer of other part of left foot with necrosis of bone; L97.521 Non-pressure chronic ulcer of other part of left foot limited to breakdown of skin; L97.421 Non-pressure chronic ulcer of left heel and midfoot limited to breakdown of skin; I73.9 Peripheral vascular disease, unspecified | CPT/HCPCS: 11042; 11044; 87070; 87075; 87077; 87176; 87186; 87205; 99214 ==

== ENCOUNTER → 2019-11-09 15:05 | Outpatient (CLI) | payer MEDICARE, SELFPAY | PROVIDERS: PCP Family Medicine; Visit Provider Family Medicine | DX: E11.621 Type 2 diabetes mellitus with foot ulcer (principal); L97.526 Non-pressure chronic ulcer of other part of left foot with bone involvement without evidence of necrosis; L97.421 Non-pressure chronic ulcer of left heel and midfoot limited to breakdown of skin; I73.9 Peripheral vascular disease, unspecified | CPT/HCPCS: 11042; 11044 ==

== ENCOUNTER → 2019-11-16 13:02 | Outpatient (CLI) | payer MEDICARE, SELFPAY | PROVIDERS: PCP Family Medicine; Referring Provider Family Medicine; Visit Provider Family Medicine | DX: E11.621 Type 2 diabetes mellitus with foot ulcer (principal); L97.524 Non-pressure chronic ulcer of other part of left foot with necrosis of bone; L97.421 Non-pressure chronic ulcer of left heel and midfoot limited to breakdown of skin; I73.9 Peripheral vascular disease, unspecified; M86.672 Other chronic osteomyelitis, left ankle and foot | CPT/HCPCS: 11042; 99214 ==

== ENCOUNTER → 2019-11-23 15:13 | Outpatient (CLI) | payer MEDICARE, SELFPAY | PROVIDERS: PCP Family Medicine; Visit Provider Family Medicine | DX: E11.621 Type 2 diabetes mellitus with foot ulcer (principal); L97.524 Non-pressure chronic ulcer of other part of left foot with necrosis of bone; L97.421 Non-pressure chronic ulcer of left heel and midfoot limited to breakdown of skin; I73.9 Peripheral vascular disease, unspecified; M86.672 Other chronic osteomyelitis, left ankle and foot | CPT/HCPCS: 99213 ==

== ENCOUNTER 2022-02-01 15:46 | Emergency (ER) | payer MEDICARE, SELFPAY ==
[2022-02-01 16:09] VITALS: BP 170/68; PULSE 68; RESP 17; TEMP 36.4; O2SAT 97; BMI 36.2
--- NOTE | 2022-02-01 18:42 | PC.NURSE ---
pt placed in room from waiting area at 1840
[2022-02-01] MEDS: PROPARACAINE 0.5% OPHTH SOL 2 DROPS EYE-LEFT (19:22)
[2022-02-01] MEDS: FLUORESCEIN 1 MG STRIP EYE-LEFT (19:22)
--- NOTE | 2022-02-01 21:07 | ED_ITS ---
HPI - General Adult General Chief complaint: Eye Problems Stated complaint: something stuck in left eye Time Seen by Provider: 02/01/22 18:54 Source: patient Mode of arrival: Ambulatory History of Present Illness HPI narrative: 81-year-old gentle with a history of atrial fibrillation anticoagulated on apixaban, hyperlipidemia and BPH presents with a complaint of something stuck in his left eye. He states that it has been present for about 3 months he is convinced that it is an eyelash stuck under his lower lid and is looking for help and reassurance. He reports no fevers, cough, chills, abdominal pain, palpitations, chest pain, orthopnea, dyspnea, acute weakness, paresthesias or headaches. Related Data Home Medications Medication Instructions Recorded Confirmed bupropion HCl 150 mg 24 hr tablet, 150 mg PO DAILY 12/04/18 10/23/19 extended release losartan 100 mg tablet 100 mg PO DAILY 12/04/18 10/23/19 amiodarone 200 mg tablet 200 mg PO DAILY 10/23/19 10/23/19 amlodipine 5 mg tablet 5 mg PO DAILY 10/23/19 10/23/19 apixaban 5 mg tablet (Eliquis) 5 mg PO BID 10/23/19 10/23/19 atorvastatin 80 mg tablet 80 mg PO DAILY 10/23/19 10/23/19 baclofen 10 mg tablet 10 mg PO BID 10/23/19 10/23/19 finasteride 5 mg tablet 5 mg PO DAILY 10/23/19 10/23/19 gabapentin 300 mg capsule 300 mg PO BID 10/23/19 10/23/19 metoprolol tartrate 25 mg tablet 25 mg PO BID 10/23/19 10/23/19 nitroglycerin 0.4 mg sublingual 0.4 mg SUBLINGUAL Q5M PRN 10/23/19 10/23/19 tablet omeprazole 40 mg capsule,delayed 40 mg PO BID 10/23/19 10/23/19 release oxycodone 5 mg tablet 5 mg PO Q6H PRN 10/23/19 10/23/19 tamsulosin 0.4 mg capsule 0.4 mg PO DAILY 10/23/19 10/23/19 Previous Rx's Medication Instructions Recorded ofloxacin 0.3 % eye drops 1 drp EYE-LEFT Q6H 5 Days #5 ml 02/01/22 Allergies Allergy/AdvReac Type Severity Reaction Status Date / Time No Known Drug Allergies Allergy Verified 02/01/22 16:11 Review of Systems Review of Systems Narrative: Remainder of complete review of systems is otherwise unremarkable except for that included in the HPI. Patient History Medical History (Updated 02/01/22 @ 21:19 by Nara Pantoja MD) Atrial fibrillation Hypertension Surgical History No pertinent past surgical history Social History Smoking Status: Former smoker Smoking Status: Former smoker alcohol intake frequency: a few times a week Substance Use Type: does not use Exam Initial Vital Signs Initial Vital Signs: Vital Signs Temperature 97.6 F 02/01/22 16:09 Pulse Rate 68 02/01/22 16:09 Respiratory Rate 17 02/01/22 16:09 Blood Pressure 170/68 H 02/01/22 16:09 Pulse Oximetry 97 02/01/22 16:09 General: Alert appropriate in no acute distress HEENT: 20/50 right side cloudy only on L. 20/50 Bilateral Eye: On visual exam the left eye is mildly erythematous but no obvious abnormalities. On on slit lamp exam there are no obvious abnormalities. Both the upper and lower lids are thoroughly examined particularly on the inner edges where he is complaining of the irritation with no abnormalities. Fluorescein staining of the last eye shows some minor irritation from where he has been rubbing his eye but no overt ulceration. Retinal exam on the right I am able to see vessels and a pink retina. On the left I am able to see only a dark brown background (pupils remaining quite constricted with this exam so it is certainly limited) Respiratory: Able to speak in full sentences, no obvious respiratory distress Skin: No obvious rashes, warm and dry Neurologic: Grossly intact no obvious asymmetries or abnormalities Psych: appropriate insight and affect, cooperative Course Orders Ordered: Discontinued Medications Fluorescein Sodium (Fluorescein 1 Mg Strip) 1 mg EYE-LEFT NOW ONE Stop: 02/01/22 19:00 Last Admin: 02/01/22 19:22 Dose: 1 mg Documented by: KIMBERLI Proparacaine HCl (Proparacaine 0.5% Ophth Kirti) 2 drops EYE-LEFT NOW ONE Stop: 02/01/22 19:00 Last Admin: 02/01/22 19:22 Dose: 2 drop Documented by: KIMBERLI Vital Signs Vital signs: Vital Signs - 8 hr 02/01/22 16:09 Temperature 97.6 F Pulse Rate 68 Respiratory Rate 17 Blood Pressure 170/68 H Pulse Oximetry 97 Medical Decision Making MDM Narrative Medical decision making narrative: 81-year-old gentleman presents complaining of something stuck in his left eye with no other complaints including no complaints of visual loss. He has almost complete loss of vision with ability to see only later dark on the left side and preserved vision bilaterally. Retinal exam shows a dark red man I suspect he had a retinal artery occlusion about 3 months ago when he initially noted symptoms. The irritation is likely related to that and now with a continuous rubbing I am concerned that over last 24-36 hours with the increased itching that he is developing a conjunctivitis. At this time, because the event was up approximately 3 months ago and he does not seem to be particularly troubled or even noticing the loss of vision in the left eye will go ahead and send him home with prescriptions for antibiotic eyedrops with the concern for a developing conjunctivitis because he has been having the eye irritation. Larger concern is for the retinal artery occlusion probability and he does need to see Ophthalmology. He currently certainly has risk with his history of atrial fibrillation but he is also appropriately anticoagulated. All of this is shared with the patient including my concern for a retinal artery occlusion 3 months ago and a very high probability that he is never going to be able to see well at of that left eye again. Questions are answered and he is safe for home discharge Discharge Plan Departure Patient Disposition: Home Clinical Impression: Central retinal artery occlusion of left eye, Bacterial conjunctivitis Instructions: DI for Conjunctivitis Activity Restrictions/Additional Instructions: Thank you for coming in today I think we did a very thorough exam and I did not find any eyelashes dust or debris to explain the itching in your left eye. I am concerned that the rubbing that you have been doing with the left eye is causing a bacterial infection and I a.m. going to give you some antibiotics to use to treat that. Even more concerning is the fact that you are unable to see out of your left eye. I am concerned the you had a blood clot in the artery going to the back of your eye about 3 months ago when your symptoms started. You do absolutely need to see an container packer operator for further evaluation. Please call tomorrow to schedule an appointment with [facility] the phone #[phone] Please note them know that you were in the emergency department, you have completely lost vision in the left eye and the emergency room doctor is worried about a retinal artery occlusion that occurred approximately 3 months ago. This will help them find an appointment for you sooner rather than later. Prescriptions: New ofloxacin 0.3 % drops 1 drp EYE-LEFT Q6H 5 Days Qty: 5 0RF No Action losartan 100 mg tablet 100 mg PO DAILY 0RF bupropion HCl 150 mg tablet extended release 24 hr 150 mg PO DAILY 0RF atorvastatin 80 mg Tablet 80 mg PO DAILY 0RF amiodarone 200 mg Tablet 200 mg PO DAILY 0RF amlodipine 5 mg Tablet 5 mg PO DAILY 0RF omeprazole 40 mg Capsule,Delayed Release(Dr/Ec) 40 mg PO BID 0RF tamsulosin 0.4 mg Capsule 0.4 mg PO DAILY 0RF baclofen 10 mg Tablet 10 mg PO BID 0RF nitroglycerin 0.4 mg Tablet, Sublingual 0.4 mg SUBLINGUAL Q5M PRN (Reason: Chest Pain) 0RF gabapentin 300 mg Capsule 300 mg PO BID 0RF finasteride 5 mg Tablet 5 mg PO DAILY 0RF oxycodone 5 mg Tablet 5 mg PO Q6H PRN (Reason: Pain (Scale Score 1-3)) 0RF metoprolol tartrate 25 mg Tablet 25 mg PO BID 0RF Eliquis 5 mg Tablet 5 mg PO BID 0RF Referrals: Brien Sharpe MD [Primary Care Provider] -
[2022-02-01 21:35] VITALS: BP 188/77; PULSE 63; RESP 18; TEMP 36.3; O2SAT 98
== END 2022-02-01 21:38 | disposition home or self-care (01) ==
PROVIDERS: Emergency Provider Emergency Medicine; PCP Family Medicine
DX: H34.12 Central retinal artery occlusion, left eye (principal); H10.89 Other conjunctivitis
CPT/HCPCS: 99282

== ENCOUNTER 2022-03-24 18:02 | Emergency (ER) | payer MEDICARE, SELFPAY ==
[2022-03-24] VITALS (19 sets, daily range): BP systolic 170–229; BP diastolic 72–93; PULSE 71–85; RESP 18–22; TEMP 36.1; O2SAT 92–97; BMI 35.4
--- NOTE | 2022-03-24 18:16 | DI.RAD.S_ITS ---
PROCEDURE: XR CHEST 1V INDICATIONS: Hemoptysis TECHNIQUE: One view of the chest was acquired. COMPARISON: [facility], CR, XR CHEST 1 VIEW, 05/06/2019, 17:30. FINDINGS: Surgical changes and devices: None. Lungs and pleura: There is a left suprahilar mass seen that measures nearly 5 cm. This cannot be seen on the 2019 chest radiograph, even in retrospect. Mediastinum: Mediastinal contours appear normal. Heart size is normal. Bones and chest wall: No suspicious bony lesions. Age-appropriate bony degenerative changes are seen. Overlying soft tissues appear unremarkable. 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 In this patient with this given history, high suspicion is raised for primary lung cancer. When clinically appropriate, please consider a follow-up dedicated chest CT with IV contrast for further evaluation. Dictated by: Konstantin Boswell M.D. on 03/24/2022 at 17:32 Approved by: Konstantin Boswell M.D. on 03/24/2022 at 17:33
[2022-03-24 18:29] LABS: Add Manual Diff / Slide Review NO; Basophils Absolute Auto 100 /uL (0-100); Basophils Percent Auto 1.6 % (0-2); Eosinophils Absolute Auto 200 /uL (0-450); Eosinophils Percent Auto 2.8 % (2-4); Hematocrit 36.1 % (41-53); Hemoglobin 11.9 g/dL (13.5-17.5); Lymphocytes Absolute Auto 1100 /uL (1100-4500); Lymphocytes Percent Auto 17.2 % (25-40); Mean Corpuscular HGB Conc 33.1 % (30-36); Mean Corpuscular Hemoglobin 25.3 PG (26-34); Mean Corpuscular Volume 76.6 fL (80-100); Monocytes Absolute Auto 600 /uL (0-900); Monocytes Percent Auto 9.7 % (3-14); Neutrophils Absolute Auto 4400 /uL (1500-7000); Neutrophils Percent Auto 68.7 % (50-75); Platelet Count 247 X10^3/uL (150-400); Red Blood Cell Count 4.71 X10^6/uL (4.5-5.9); Red Cell Distribution Width 21.5 % (11.6-14.8); White Blood Cell Count 6.3 X10^3/uL (4.5-11.0)
--- NOTE | 2022-03-24 18:39 | ED.GIBLEED ---
HPI - GI Bleed General Chief complaint: GI Bleed Stated complaint: On Eliquis and has bled multiple times Time Seen by Provider: 03/24/22 18:08 Source: patient Mode of arrival: Family Vehicle Limitations: no limitations History of Present Illness HPI Narrative: Patient is an 82-year-old male. Is somewhat of a poor historian although he does note he takes Eliquis. He is unsure exactly why he is on this medication. After talking with him I suspect it is because of vascular issues and stents that he has had placed in the vessels in his lower extremities but I am not 100% sure this. He reports no history of atrial fibrillation per his report however his medical history does list atrial fibrillation as a medical problem. No history of valve replacement. No pacemaker in place. He is here for evaluation because a couple times over the past 24-48 hours he has coughed up dark colored blood. He reports no chest pain. No shortness of breath. No abdominal pain. He does not think that he has any changes in the color of his stool but he is unsure. He states that he is not having any blood in his urine. He denies fevers. Related Data Home Medications Medication Instructions Recorded Confirmed bupropion HCl 150 mg 24 hr tablet, 150 mg PO DAILY 12/04/18 10/23/19 extended release losartan 100 mg tablet 100 mg PO DAILY 12/04/18 10/23/19 amiodarone 200 mg tablet 200 mg PO DAILY 10/23/19 10/23/19 amlodipine 5 mg tablet 5 mg PO DAILY 10/23/19 10/23/19 apixaban 5 mg tablet (Eliquis) 5 mg PO BID 10/23/19 10/23/19 atorvastatin 80 mg tablet 80 mg PO DAILY 10/23/19 10/23/19 baclofen 10 mg tablet 10 mg PO BID 10/23/19 10/23/19 finasteride 5 mg tablet 5 mg PO DAILY 10/23/19 10/23/19 gabapentin 300 mg capsule 300 mg PO BID 10/23/19 10/23/19 metoprolol tartrate 25 mg tablet 25 mg PO BID 10/23/19 10/23/19 nitroglycerin 0.4 mg sublingual 0.4 mg SUBLINGUAL Q5M PRN 10/23/19 10/23/19 tablet omeprazole 40 mg capsule,delayed 40 mg PO BID 10/23/19 10/23/19 release oxycodone 5 mg tablet 5 mg PO Q6H PRN 10/23/19 10/23/19 tamsulosin 0.4 mg capsule 0.4 mg PO DAILY 10/23/19 10/23/19 Allergies Allergy/AdvReac Type Severity Reaction Status Date / Time No Known Drug Allergies Allergy Verified 03/24/22 18:14 Review of Systems Constitutional Constitutional: Denies fever(s) Cardiovascular Cardiovascular: Denies chest pain, Denies chest pain with activity, Denies rapid heart rate and Denies dyspnea Respiratory Respiratory: Denies cough, Reports hemoptysis and Denies dyspnea Gastrointestinal Gastrointestinal: Denies abdominal pain, Denies coffee ground emesis, Denies nausea and Denies vomiting Genitourinary Genitourinary: Denies hematuria and Denies dysuria Integumentary/Breasts Skin/Breast: Reports system reviewed and no additional complaints, except as documented Neurologic Neurologic: Reports system reviewed and no additional complaints, except as documented Hematologic/Lymphatic On Anticoagulants: Yes Patient History Medical History Atrial fibrillation Hypertension Surgical History No pertinent past surgical history Social History Smoking Status: Former smoker Smoking Status: Former smoker alcohol intake frequency: a few times a week Substance Use Type: does not use Exam Initial Vital Signs Initial Vital Signs: Vital Signs Pulse Rate 85 03/24/22 18:10 Pulse Oximetry 94 03/24/22 18:10 Const General: cooperative and comfortable HENMT Head: normal to inspection and normocephalic Resp Effort & Inspection: normal respiratory effort Auscultation: rhonchi and no wheezes Cardio Rate: regular rate Rhythm: regular rhythm GI Inspection: normal to inspection Skin General: no rashes or lesions noted Neuro General: patient alert, patient awake and moves all extremities Extrem General: normal to inspection and capillary refill normal Psych Appearance: grossly normal and well kempt Course Orders Ordered: ED Orders 03/24/22 18:16 XR chest 1V Stat COVID19 -Nasal RAPID/Pre-Proc Stat Complete Blood Count AUTO DIFF Stat Comprehensive Metabolic Panel Stat Vital Signs Vital signs: Vital Signs - 8 hr 03/24/22 18:10 03/24/22 18:12 03/24/22 18:30 Temperature 97 F L Pulse Rate 85 83 78 Respiratory Rate 22 18 Blood Pressure 217/93 H Pulse Oximetry 94 95 92 03/24/22 18:41 03/24/22 18:42 03/24/22 19:00 Temperature Pulse Rate 75 79 Respiratory Rate Blood Pressure 229/93 H 229/93 H Pulse Oximetry 96 96 03/24/22 19:01 03/24/22 19:02 03/24/22 19:16 Temperature Pulse Rate 79 77 75 Respiratory Rate Blood Pressure 220/85 H 220/85 H 198/82 H Pulse Oximetry 97 97 03/24/22 19:30 03/24/22 20:00 03/24/22 20:01 Temperature Pulse Rate 73 72 72 Respiratory Rate Blood Pressure 200/84 H 194/79 H Pulse Oximetry 97 95 95 03/24/22 20:30 03/24/22 20:31 03/24/22 21:00 Temperature Pulse Rate 71 72 71 Respiratory Rate Blood Pressure 182/79 H Pulse Oximetry 95 96 95 03/24/22 21:01 03/24/22 23:22 03/24/22 23:24 Temperature Pulse Rate 71 84 78 Respiratory Rate Blood Pressure 170/72 H 202/84 H Pulse Oximetry 95 92 95 03/24/22 23:30 03/25/22 00:00 03/25/22 00:01 Temperature Pulse Rate 79 75 76 Respiratory Rate Blood Pressure 198/88 H 183/77 H Pulse Oximetry 96 95 96 03/25/22 00:08 03/25/22 00:30 03/25/22 00:31 Temperature Pulse Rate 76 72 73 Respiratory Rate Blood Pressure 204/85 H 188/79 H Pulse Oximetry 96 96 97 MDM - GI Bleed Lab Data Attestation: I reviewed the patient's lab results. Result diagrams: 03/24/22 18:16 03/24/22 18:16 Labs: Lab Results 03/24/22 03/24/22 03/24/22 Range/Units 18:16 18:16 18:16 WBC 6.3 (4.5-11.0) X10^3/uL RBC 4.71 (4.5-5.9) X10^6/uL Hgb 11.9 L (13.5-17.5) g/dL Hct 36.1 L (41-53) % MCV 76.6 L (80-100) fL MCH 25.3 L (26-34) PG MCHC 33.1 (30-36) % RDW 21.5 H (11.6-14.8) % Plt Count 247 (150-400) X10^3/uL Neut % (Auto) 68.7 (50-75) % Lymph % (Auto) 17.2 L (25-40) % [place] % (Auto) 9.7 (3-14) % Eos % (Auto) 2.8 (2-4) % Baso % (Auto) 1.6 (0-2) % Neut # (Auto) 4400 (2430-1453) /uL Lymph # (Auto) 1100 (3049-3087) /uL [place] # (Auto) 600 (0-900) /uL Eos # (Auto) 200 (0-450) /uL Baso # (Auto) 100 (0-100) /uL RBC Morphology See below Hypochromasia 1+ H Microcytosis 1+ H Sodium 137 (137-145) mmol/L Potassium 4.0 (3.4-5.1) mmol/L Chloride 101 (98-107) mmol/L Carbon Dioxide 29 (22-32) mmol/L BUN 14 (9-20) mg/dL Creatinine 1.12 (0.66-1.25) mg/dL Estimated GFR > 60 (>60) mL/min BUN/Creatinine Ratio 12.5 (6-22) Glucose 113 H (80-110) mg/dL Calcium 9.3 (8.4-10.2) mg/dL Total Bilirubin 0.7 (0.2-1.3) mg/dL AST 37 (17-59) IU/L ALT 24 (<50) IU/L Alkaline Phosphatase 109 (38-126) U/L Total Protein 8.9 H (6.3-8.2) g/dL Albumin 4.6 (3.5-5.0) g/dL Globulin 4.3 H (1.7-4.1) g/dL Albumin/Globulin Ratio 1.1 (1.0-2.8) SARS-CoV-2 (PCR) Negative (Negative) Urine Dip Bedside Urine Glucose Negative Bedside Urine Bilirubin - Negative Bedside Urine Ketone - Negative Urine Specific [place] 1.015 Bedside Urine Occult Blood - Negative Bedside Urine pH 7.0 Bedside Urine Protein - Negative Bedside Urine Urobilinogen - Negative Bedside Urine Nitrite - Negative Bedside Urine Leukocytes - Negative Esterase Imaging Data Chest x-ray: Radiologist's Impression: [address] [id number] XRay Report Signed Patient: Steven Chowdhury MR#: [id number] : 1940 Acct:[id number] Age/Sex: 82 / M Date of Service: 03/24/22 Loc: ED Accession Number: [id number] ?? Procedure: XR chest 1V Ordering Provider: Flavio Hartmann D.O. PROCEDURE:? XR CHEST 1V ? INDICATIONS:? Hemoptysis ? TECHNIQUE:? One view of the chest was acquired.? ? COMPARISON:? [facility], , XR CHEST 1 VIEW, 05/06/2019, 17:30. ? FINDINGS:? ? Surgical changes and devices:? None.? ? Lungs and pleura:? There is a left suprahilar mass seen that measures nearly 5 cm.? This cannot be seen on the 2019 chest radiograph, even in retrospect. ? Mediastinum:? Mediastinal contours appear normal.? Heart size is normal.? ? Bones and chest wall:? No suspicious bony lesions.? Age-appropriate bony degenerative changes are seen. ? Overlying soft tissues appear unremarkable.? ? ? IMPRESSION:? ? There is a new left suprahilar mass seen that measures nearly 5 cm.? ? In this patient with this given history, high suspicion is raised for primary lung cancer. ? When clinically appropriate, please consider a follow-up dedicated chest CT with IV contrast for further evaluation.? ? Dictated by: Konstantin Boswell M.D. on 03/24/2022 at 17:32 ? ? Approved by: Konstantin Boswell M.D. on 03/24/2022 at 17:33?? 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 Compressing it just and branches of the left pulmonary arteries and veins. This large mass was identified also by plain film earlier same day MDM Narrative Medical decision making narrative: Other than hypertension patient's vital signs are unremarkable. He is not having any respiratory distress. Has had no hemoptysis or hematemesis lab here in the ER. His lungs are clear. Labs are unremarkable. Chest x-ray concerning for left-sided lung mass. Patient did have an extended stay because he needed to be transferred to another facility for CT scan secondary to the scanner at this facility being inoperable. CT scan of the chest confirms left upper lobe lung mass concerning for malignancy. Patient is hemoptysis could potentially be from this lung mass or from his Eliquis as he states that he has had nose bleeds in the past because of the Eliquis. I did contact the physician on-call for the patient's primary doctor and inform them that the patient should have follow-up in the next week. Patient was informed of this his wellness told to contact his primary doctor's office on Saturday for a follow-up. He was informed of the findings of the CT scan. He expressed understanding and agreement. I do not feel the patient requires admission to the hospital for emergent workup given his stability and his exam. Was given strict return precautions. Discharge Plan Departure Patient Disposition: Home Clinical Impression: Mass of left lung, Hemoptysis Instructions: DI for Hemoptysis Activity Restrictions/Additional Instructions: Recommend that you continue to take all of your medications as directed. The CT scan and chest x-ray today shows a mass in your left lung that is concerning for cancer. This does require continued follow-up by your primary doctor. I did contact your primary doctor's office to let them know of these findings. Recommend on Saturday that you contact your primary doctor's office for a follow-up. Return to the emergency department for any new or worsening symptoms. Prescriptions: No Action losartan 100 mg tablet 100 mg PO DAILY 0RF bupropion HCl 150 mg tablet extended release 24 hr 150 mg PO DAILY 0RF atorvastatin 80 mg Tablet 80 mg PO DAILY 0RF amiodarone 200 mg Tablet 200 mg PO DAILY 0RF amlodipine 5 mg Tablet 5 mg PO DAILY 0RF omeprazole 40 mg Capsule,Delayed Release(Dr/Ec) 40 mg PO BID 0RF tamsulosin 0.4 mg Capsule 0.4 mg PO DAILY 0RF baclofen 10 mg Tablet 10 mg PO BID 0RF nitroglycerin 0.4 mg Tablet, Sublingual 0.4 mg SUBLINGUAL Q5M PRN (Reason: Chest Pain) 0RF gabapentin 300 mg Capsule 300 mg PO BID 0RF finasteride 5 mg Tablet 5 mg PO DAILY 0RF oxycodone 5 mg Tablet 5 mg PO Q6H PRN (Reason: Pain (Scale Score 1-3)) 0RF metoprolol tartrate 25 mg Tablet 25 mg PO BID 0RF Eliquis 5 mg Tablet 5 mg PO BID 0RF Referrals: Brien Sharpe MD [Primary Care Provider] -
[2022-03-24 18:40] LABS: Alanine Aminotransferase 24 IU/L (<50); Albumin 4.6 g/dL (3.5-5.0); Albumin Globulin Ratio 1.1 (1.0-2.8); Alkaline Phosphatase 109 U/L (38-126); Aspartate Aminotransferase 37 IU/L (17-59); BUN Creatinine Ratio 12.5 (6-22); Bilirubin Total 0.7 mg/dL (0.2-1.3); Blood Urea Nitrogen 14 mg/dL (9-20); Calcium 9.3 mg/dL (8.4-10.2); Carbon Dioxide 29 mmol/L (22-32); Chloride 101 mmol/L (98-107); Estimated Glomerular Filt Rate > 60 mL/min (>60); Globulin 4.3 g/dL (1.7-4.1); Glucose 113 mg/dL (80-110); HEMOLYSIS < 15 (0-50); Sodium 137 mmol/L (137-145); Total Protein 8.9 g/dL (6.3-8.2)
[2022-03-24 18:42] LABS: COVID19 -Nasal RAPID Negative (Negative)
[2022-03-24 19:06] LABS: Hypochromasia 1+; Microcytosis 1+
--- NOTE | 2022-03-24 20:44 | PC.NURSE ---
EMS here report given and pt transported for CT
--- NOTE | 2022-03-24 23:21 | CM.MNRNOTE ---
Addendum entered by Linda Reeder R.N. 03/25/22 00:47: this is just a nurses note Original Note: pt returned from getting CT, aao x 3
[2022-03-25] VITALS: PULSE 75; O2SAT 95
[2022-03-25 00:01] VITALS: BP 183/77; PULSE 76; O2SAT 96
[2022-03-25 00:08] VITALS: BP 204/85; PULSE 76; O2SAT 96
[2022-03-25 00:30] VITALS: PULSE 72; O2SAT 96
[2022-03-25 00:31] VITALS: BP 188/79; PULSE 73; O2SAT 97
== END 2022-03-25 00:50 | disposition home or self-care (01) ==
PROVIDERS: Emergency Provider Emergency Medicine; PCP Family Medicine
DX: R91.8 Other nonspecific abnormal finding of lung field (principal); R04.2 Hemoptysis; Z20.822 Contact with and (suspected) exposure to COVID-19
CPT/HCPCS: 36415; 71045; 80053; 81003; 85025; 87635; 93005; 99283; C9803